=== PATIENT | female | born 1950 | race Asian ===

== ENCOUNTER → 2022-07-21 | Outpatient (CLI) | payer MEDICARE ==
[2022-07-21 10:01] LABS: Basophils # (auto) 0.1 10 ^3/uL (0-0.2); Basophils % (auto) 0.6 % (0.0-2.0); Eosinophils # (auto) 0 10 ^3/uL (0-0.8); Eosinophils % (auto) 0.3 % (0.0-7.0); Hematocrit 34.5 % (36.0-46.0); Hemoglobin 11.3 g/dL (12.2-16.2); Lymphocytes # (auto) 4.2 10 ^3/uL (0.4-5.4); Lymphocytes % (auto) 29.4 % (10.0-50.0); Mean Corpuscular Hemoglobin 29.4 pg (28.0-32.0); Mean Corpuscular Hgb Conc. 32.6 g/dL (32.0-36.0); Mean Corpuscular Volume 90.1 fL (80.0-100.0); Monocytes # (auto) 1.1 10 ^3/uL (0-1.3); Monocytes % (auto) 7.4 % (0.0-12.0); Neutrophils % (auto) 62.3 % (37.0-80.0); Nucleated Red Blood Cells % 0.1 %; Red Blood Cells 3.83 10^6/uL (4.0-5.20); Red Cell Distribution Width 13.7 % (11.8-14.3); White Blood Cell 14.4 10^3/uL (4.4-10.8)
[2022-07-21 10:54] LABS: Albumin 3.6 g/dL (3.4-5.0); Calcium 8.4 mg/dL (8.5-10.1); Potassium 3.3 mmol/L (3.5-5.1)
[2022-07-21 11:07] LABS: Bilirubin, Total 0.3 mg/dL (0.2-1.0); Total Protein 7.3 g/dL (6.4-8.2)
== END | disposition home or self-care (01) ==
LOC: LAB 09:40
PROVIDERS: ATTEND Student in an Organized Health Care Education/Training Program
DX: Z13.6 Encounter for screening for cardiovascular disorders (principal); R00.2 Palpitations
CPT/HCPCS: 36415; 80053; 80061; 85025

== ENCOUNTER → 2022-09-03 | Outpatient (CLI) | payer OTHER | END | disposition home or self-care (01) | LOC: LAB 10:35 | PROVIDERS: ATTEND Student in an Organized Health Care Education/Training Program | DX: Z12.11 Encounter for screening for malignant neoplasm of colon (principal); Z13.6 Encounter for screening for cardiovascular disorders; R00.2 Palpitations | CPT/HCPCS: 82274 ==

== ENCOUNTER → 2022-10-21 | Outpatient (CLI) | payer OTHER ==
[2022-10-21 12:32] LABS: Calcium 8.6 mg/dL (8.5-10.1); Magnesium 1.6 mg/dL (1.6-2.6); Potassium 3.7 mmol/L (3.5-5.1)
[2022-10-21 13:05] LABS: BUN/Creatinine Ratio 15.5 (10.0-20.0)
== END | disposition home or self-care (01) ==
LOC: LAB 11:41
DX: R00.2 Palpitations (principal)
CPT/HCPCS: 36415; 80048; 83735

== ENCOUNTER → 2022-11-23 | Outpatient (CLI) | payer OTHER | END | disposition home or self-care (01) | LOC: EDSTATUS 08:26 → XYW 08:28 | DX: I07.1 Rheumatic tricuspid insufficiency (principal); R07.9 Chest pain, unspecified | CPT/HCPCS: 93306 ==

== ENCOUNTER → 2022-12-08 | Outpatient (CLI) | payer OTHER ==
[2022-12-08 12:02] LABS: Basophils # (auto) 0.2 10 ^3/uL (0-0.2); Basophils % (auto) 1.3 % (0.0-2.0); Eosinophils # (auto) 0 10 ^3/uL (0-0.8); Eosinophils % (auto) 0.1 % (0.0-7.0); Hematocrit 35.4 % (36.0-46.0); Hemoglobin 11.4 g/dL (12.2-16.2); Lymphocytes # (auto) 2.2 10 ^3/uL (0.4-5.4); Mean Corpuscular Hemoglobin 29.5 pg (28.0-32.0); Mean Corpuscular Hgb Conc. 32.3 g/dL (32.0-36.0); Mean Corpuscular Volume 91.2 fL (80.0-100.0); Monocytes # (auto) 0.6 10 ^3/uL (0-1.3); Monocytes % (auto) 5.5 % (0.0-12.0); Neutrophils # (auto) 8.7 10 ^3/uL (1.6-8.6); Neutrophils % (auto) 74.1 % (37.0-80.0); Nucleated Red Blood Cells % 0.1 %; Red Blood Cells 3.88 10^6/uL (4.0-5.20); Red Cell Distribution Width 14.3 % (11.8-14.3); White Blood Cell 11.7 10^3/uL (4.4-10.8)
[2022-12-08 12:29] LABS: Urine Bacteria NONE SEEN /hpf (None Seen); Urine Blood Negative /uL (Negative); Urine Clarity Clear (Clear); Urine Hyaline Cast FEW /lpf (0 - 2); Urine Protein, UAD Negative (Negative); Urine Specific Gravity 1.008 (1.001-1.035); Urine Urobilinogen Normal (Negative); Urine WBC <1 /hpf (0 - 5)
[2022-12-08 12:30] LABS: Urine Color Straw (Yellow)
[2022-12-08 13:10] LABS: Erythrocyte Sedimentation Rate 12 mm/hr (0-20)
[2022-12-08 13:22] LABS: Alanine Aminotransferase 23 U/L (7-40); Albumin 4.7 g/dL (3.2-4.8); Alkaline Phosphatase 109 U/L (46-116); Anion Gap 10.9 (5-15); Aspartate Aminotransferase 14 U/L (13-40); BUN/Creatinine Ratio 20.2 (10.0-20.0); Blood Urea Nitrogen 42 mg/dL (9-23); CRP High Sensitivity 0.36 mg/dL (<1.0); Calcium 9.6 mg/dL (8.5-10.1); Carbon Dioxide 25.1 mmol/L (20-30); Chloride 100 mmol/L (98-107); Glucose 96 mg/dL (74-106); Potassium 4.8 mmol/L (3.5-5.1); Sodium 136 mmol/L (136-145)
[2022-12-08 13:23] LABS: Bilirubin, Total 0.6 mg/dL (0.2-1.0); Total Protein 6.9 g/dL (5.7-8.2)
[2022-12-08 13:34] LABS: Protein, Urine < 6.0 mg/dL (0.0-11.9)
[2022-12-08 13:37] LABS: Urine Protein/Creatinine Ratio 0.14
[2022-12-09 08:06] LABS: Complement C3 146 mg/dL (82-167)
[2022-12-09 10:08] LABS: Hepatitis B Core IgM Negative; Hepatitis C Antibody Negative (Negative)
[2022-12-09 14:06] LABS: Anti-Nuclear Antibody Direct Positive (Negative)
[2022-12-09 14:38] LABS: Hepatitis B Surface Antigen Negative (Negative)
[2022-12-09 23:07] LABS: CCP IgG/IgA Antibody 3 units (0-19)
[2022-12-10 12:07] LABS: QuantiFERON-TB Gold Plus Negative (Negative)
== END | disposition home or self-care (01) ==
LOC: LAB 10:49
PROVIDERS: ATTEND Internal Medicine Rheumatology
DX: M06.9 Rheumatoid arthritis, unspecified (principal); M32.9 Systemic lupus erythematosus, unspecified
CPT/HCPCS: 36415; 80053; 81001; 82570; 84156; 85025; 85652; 86038; 86141; 86160; 86200; 86705; 86706; 86803; 87340

== ENCOUNTER → 2023-01-24 | Outpatient (CLI) | payer MEDICARE, OTHER ==
[~2023-01-24] VITALS: Ht 157.5 cm; Wt 63.5 kg
[~2023-01-24] MED LIST: ADENOSINE 53 MG in GIVE UN-DILUTED 0 ML IV STA
== END | disposition home or self-care (01) ==
LOC: XY 09:45
PROVIDERS: ATTEND Student in an Organized Health Care Education/Training Program
DX: R07.9 Chest pain, unspecified (principal)
CPT/HCPCS: 78452; 93017; A9500; J0153

== ENCOUNTER → 2023-01-26 | Outpatient (CLI) | payer OTHER ==
[2023-01-26 11:55] LABS: Basophils # (auto) 0.1 10 ^3/uL (0-0.2); Basophils % (auto) 0.7 % (0.0-2.0); Eosinophils # (auto) 0.1 10 ^3/uL (0-0.8); Eosinophils % (auto) 0.9 % (0.0-7.0); Hematocrit 32.6 % (36.0-46.0); Hemoglobin 10.6 g/dL (12.2-16.2); Lymphocytes # (auto) 2.6 10 ^3/uL (0.4-5.4); Lymphocytes % (auto) 29.6 % (10.0-50.0); Mean Corpuscular Hemoglobin 29.2 pg (28.0-32.0); Mean Corpuscular Hgb Conc. 32.6 g/dL (32.0-36.0); Mean Corpuscular Volume 89.8 fL (80.0-100.0); Monocytes # (auto) 0.7 10 ^3/uL (0-1.3); Monocytes % (auto) 8.4 % (0.0-12.0); Neutrophils # (auto) 5.3 10 ^3/uL (1.6-8.6); Neutrophils % (auto) 60.4 % (37.0-80.0); Nucleated Red Blood Cells % 0.1 %; Red Blood Cells 3.64 10^6/uL (4.0-5.20); Red Cell Distribution Width 14.6 % (11.8-14.3); White Blood Cell 8.7 10^3/uL (4.4-10.8)
[2023-01-26 12:09] LABS: Urine Bacteria NONE SEEN /hpf (None Seen); Urine Blood Negative /uL (Negative); Urine Clarity Clear (Clear); Urine Color Colorless (Yellow); Urine Hyaline Cast FEW /lpf (0 - 2); Urine Protein, UAD Negative (Negative); Urine Specific Gravity 1.005 (1.001-1.035); Urine Urobilinogen Normal (Negative); Urine WBC <1 /hpf (0 - 5)
[2023-01-26 12:23] LABS: Alanine Aminotransferase 19 U/L (7-40); Albumin 4.5 g/dL (3.2-4.8); Alkaline Phosphatase 120 U/L (46-116); Anion Gap 6 (5-15); Aspartate Aminotransferase 21 U/L (13-40); BUN/Creatinine Ratio 8.3 (10.0-20.0); Blood Urea Nitrogen 10 mg/dL (9-23); Calcium 9.6 mg/dL (8.5-10.1); Carbon Dioxide 29 mmol/L (20-30); Chloride 105 mmol/L (98-107); Glucose 88 mg/dL (74-106); Potassium 4.2 mmol/L (3.5-5.1); Sodium 140 mmol/L (136-145)
[2023-01-26 12:24] LABS: Bilirubin, Total 0.4 mg/dL (0.2-1.0); Total Protein 6.9 g/dL (5.7-8.2)
[2023-01-26 12:26] LABS: Erythrocyte Sedimentation Rate 18 mm/hr (0-20)
[2023-01-27 10:47] LABS: Anti-dsDNA Antibody <1 IU/mL (0-9); Complement C3 147 mg/dL (82-167)
== END | disposition home or self-care (01) ==
LOC: LAB 11:32
PROVIDERS: ATTEND Internal Medicine Rheumatology
DX: M32.9 Systemic lupus erythematosus, unspecified (principal)
CPT/HCPCS: 36415; 80053; 81001; 85025; 85652; 86141; 86160; 86225; 87086

== ENCOUNTER → 2023-02-25 | Outpatient (CLI) | payer OTHER ==
[2023-02-25 11:14] LABS: Basophils # (auto) 0 10 ^3/uL (0-0.2); Basophils % (auto) 0.2 % (0.0-2.0); Eosinophils # (auto) 0 10 ^3/uL (0-0.8); Eosinophils % (auto) 0.1 % (0.0-7.0); Hematocrit 32.2 % (36.0-46.0); Hemoglobin 10.4 g/dL (12.2-16.2); Lymphocytes # (auto) 1.1 10 ^3/uL (0.4-5.4); Lymphocytes % (auto) 9.3 % (10.0-50.0); Mean Corpuscular Hemoglobin 29.3 pg (28.0-32.0); Mean Corpuscular Hgb Conc. 32.4 g/dL (32.0-36.0); Mean Corpuscular Volume 90.3 fL (80.0-100.0); Monocytes # (auto) 0.2 10 ^3/uL (0-1.3); Neutrophils # (auto) 10.5 10 ^3/uL (1.6-8.6); Neutrophils % (auto) 88.4 % (37.0-80.0); Nucleated Red Blood Cells % 0.1 %; Red Blood Cells 3.56 10^6/uL (4.0-5.20); Red Cell Distribution Width 15.4 % (11.8-14.3); White Blood Cell 11.8 10^3/uL (4.4-10.8)
[2023-02-25 11:43] LABS: Alanine Aminotransferase 20 U/L (7-40); Alkaline Phosphatase 116 U/L (46-116); Anion Gap 6 (5-15); BUN/Creatinine Ratio 22.7 (10.0-20.0); Blood Urea Nitrogen 27 mg/dL (9-23); CRP High Sensitivity 0.26 mg/dL (<1.0); Calcium 9.2 mg/dL (8.5-10.1); Carbon Dioxide 30 mmol/L (20-30); Chloride 103 mmol/L (98-107); Glucose 108 mg/dL (74-106); Potassium 3.9 mmol/L (3.5-5.1); Sodium 139 mmol/L (136-145)
[2023-02-25 11:44] LABS: Albumin 4.6 g/dL (3.2-4.8); Aspartate Aminotransferase 25 U/L (13-40); Bilirubin, Total 0.5 mg/dL (0.2-1.0); Total Protein 6.7 g/dL (5.7-8.2)
[2023-02-25 12:24] LABS: Erythrocyte Sedimentation Rate 3 mm/hr (0-20)
== END | disposition home or self-care (01) ==
LOC: LAB 10:53
PROVIDERS: ATTEND Internal Medicine Rheumatology
DX: M32.9 Systemic lupus erythematosus, unspecified (principal)
CPT/HCPCS: 36415; 80053; 85025; 85652; 86141

== ENCOUNTER 2023-04-07 11:07 | Day surgery (SDC) | payer OTHER ==
[2023-04-04 12:39] LABS: Basophils # (auto) 0 10 ^3/uL (0-0.2); Basophils % (auto) 0.4 % (0.0-2.0); Eosinophils # (auto) 0.1 10 ^3/uL (0-0.8); Eosinophils % (auto) 0.7 % (0.0-7.0); Hematocrit 32.4 % (36.0-46.0); Hemoglobin 10.8 g/dL (12.2-16.2); Lymphocytes # (auto) 3.1 10 ^3/uL (0.4-5.4); Lymphocytes % (auto) 29.7 % (10.0-50.0); Mean Corpuscular Hemoglobin 30.4 pg (28.0-32.0); Mean Corpuscular Hgb Conc. 33.4 g/dL (32.0-36.0); Mean Corpuscular Volume 91.3 fL (80.0-100.0); Monocytes # (auto) 0.6 10 ^3/uL (0-1.3); Monocytes % (auto) 5.5 % (0.0-12.0); Neutrophils # (auto) 6.7 10 ^3/uL (1.6-8.6); Neutrophils % (auto) 63.7 % (37.0-80.0); Nucleated Red Blood Cells % 0.1 %; Red Blood Cells 3.55 10^6/uL (4.0-5.20); Red Cell Distribution Width 14.4 % (11.8-14.3); White Blood Cell 10.5 10^3/uL (4.4-10.8)
[2023-04-04 13:41] LABS: INR 0.94 (0.9-1.15); Partial Thromboplastin Time 24.8 SEC (24.5-34.5); Prothrombin Time 9.9 sec (9.3-11.8)
[2023-04-04 13:52] LABS: Alanine Aminotransferase 29 U/L (7-40); Albumin 4.6 g/dL (3.2-4.8); Alkaline Phosphatase 134 U/L (46-116); Anion Gap 8 (5-15); Aspartate Aminotransferase 28 U/L (13-40); Blood Urea Nitrogen 23 mg/dL (9-23); Calcium 9.6 mg/dL (8.5-10.1); Carbon Dioxide 26 mmol/L (20-30); Chloride 107 mmol/L (98-107); Glucose 116 mg/dL (74-106); Potassium 3.4 mmol/L (3.5-5.1); Sodium 141 mmol/L (136-145)
[2023-04-04 13:53] LABS: Bilirubin, Total 0.4 mg/dL (0.2-1.0); Total Protein 6.7 g/dL (5.7-8.2)
[~2023-04-07] VITALS: Ht 157.5 cm; Wt 59.9 kg
[2023-04-07] VITALS (7 sets, daily range): BP systolic 106–134; BP diastolic 48–89; PULSE 82–90; RESP 15–20; TEMP 97.9; O2SAT 95–97
[~2023-04-07 11:07] MED LIST changes: -ADENOSINE 53 MG in GIVE UN-DILUTED 0 ML IV STA; +ALLO100T PO; +AMIT25TA20 PO; +ATOR20TA50 PO; +CELE100C82 PO; +CHOL100079 PO; +FOLI-119 PO; +FURO40TA4 PO; +HYDR-4188 PO; +LEFL20TA PO; +LISI20TA56 PO; +MAGN400T40 PO; +METO-158 PO; +OMEP20TA PO; +TRAM50TA2 PO
[2023-04-07] MEDS ORDERED: HEPARIN SODIUM (PORCINE) 5000 UNITS/ML 1ML VIAL ONE (13:52)
[2023-04-07] MEDS ORDERED: VERAPAMIL 2.5MG/ML INJ 2ML VIAL IV ONE (13:52)
[2023-04-07] MEDS ORDERED: ANGIOMAX 250 MG VIAL IV ONE (13:52)
[2023-04-07] MEDS ORDERED: SODIUM CHL 0.9% 0 ML ONE (13:53)
[2023-04-07] MEDS ORDERED: fentaNYL CITRATE 100 MCG/2 ML VL ONE (13:53)
[2023-04-07] MEDS ORDERED: MIDAZOLAM HCL 2MG/2ML 2ml VIAL (1mg/ml) ONE (13:53)
[2023-04-07] MEDS ORDERED: LIDOCAINE 2%HCL (LOCAL ANESTH.) INJ 20ML MDV ONE (13:53)
[2023-04-07] MEDS ORDERED: IODIXANOL 320MG/ML 100ML BTL IV ONE (14:15)
[2023-04-07] MEDS ORDERED: CHOL10009 PO (15:32)
[2023-04-07] MEDS ORDERED: OMEP-448 PO (15:37)
== END 2023-04-07 16:45 | disposition home or self-care (01) ==
LOC: CATH 11:07
PROVIDERS: ATTEND Student in an Organized Health Care Education/Training Program
DX: R94.39 Abnormal result of other cardiovascular function study (principal); R07.89 Other chest pain; R06.02 Shortness of breath; I20.0 Unstable angina; M32.9 Systemic lupus erythematosus, unspecified; M06.9 Rheumatoid arthritis, unspecified; N28.9 Disorder of kidney and ureter, unspecified
CPT/HCPCS: 36415; 80053; 85025; 85610; 85730; 93458; C1769; C1887; C1894; J1644; J2250; J3010; J7030; Q9967; 99152

== ENCOUNTER 2023-06-29 10:32 | Inpatient (IN) | payer MEDICARE, OTHER ==
[~2023-06-29] VITALS: Ht 157.5 cm; Wt 65.4 kg
[~2023-06-29 10:32] MED LIST changes: -CHOL100079 PO; +CHOL10009 PO; +OMEP-448 PO; -OMEP20TA PO
[2023-06-29 12:11] LABS: Hematocrit 29.5 % (36.0-46.0); Hemoglobin 9.7 g/dL (12.2-16.2); Mean Corpuscular Hemoglobin 28.7 pg (28.0-32.0); Mean Corpuscular Hgb Conc. 32.9 g/dL (32.0-36.0); Red Cell Distribution Width 14.2 % (11.8-14.3); White Blood Cell 10.3 10^3/uL (4.4-10.8)
[2023-06-29 12:12] LABS: Chloride 94 mmol/L (98-107); Potassium 3.2 mmol/L (3.5-5.1); Sodium 130 mmol/L (136-145)
[2023-06-29 12:13] LABS: Anion Gap 7 (5-15); Calcium 9.2 mg/dL (8.5-10.1); Carbon Dioxide 29 mmol/L (20-30)
[2023-06-29 12:16] LABS: Band Neutrophils % (manual) 0; Basophils % (manual) 0 (0.0-2.0); Blast Cells 0; Eosinophils % (manual) 0 (0-7); Metamyelocytes % 0; Myelocytes % 0; Promyelocytes % 0; Reactive Lymphocytes 0
[2023-06-29 12:18] LABS: BUN/Creatinine Ratio 8.1 (10.0-20.0); Blood Urea Nitrogen 14 mg/dL (9-23); Glucose 109 mg/dL (74-106)
[2023-06-29 12:30] LABS: INR 0.96 (0.9-1.15); Partial Thromboplastin Time 24.9 SEC (24.5-34.5); Prothrombin Time 10.1 sec (9.3-11.8)
[2023-06-29] MEDS: IOHEXOL 350 MG/ML 100ML IJ ONE (12:30)
[2023-06-29 12:48] LABS: Lymphocytes % (manual) 11 (10.0-50.0); Monocytes % (manual) 8 (0-12); Platelet Estimate Adequate
[2023-06-29] MEDS ORDERED: PRED10TA PO (14:04)
[2023-06-29] MEDS ORDERED: HYDR200T36 PO (14:04)
[2023-06-29] MEDS ORDERED: MET50T PO (14:04)
[2023-06-29] MEDS ORDERED: AMIT100T75 PO (14:04)
[2023-06-29] MEDS ORDERED: ACETAMINOPHEN 325 MG TAB PO PRN (14:15)
[2023-06-29] MEDS ORDERED: ONDANSETRON HCL 4 MG/2 ML VIAL IV PRN (14:15)
[2023-06-29] MEDS ORDERED: DOCUSATE SOD 100 MG CAP PO PRN (14:15)
[2023-06-29 14:33] VITALS: BP 129/69; PULSE 79; RESP 16; TEMP 98.3; O2SAT 97
[2023-06-29] MEDS: POTASSIUM EFFERVESENT TAB 25 MEQ PO ONE (14:51)
[2023-06-29] MEDS: SODIUM CHLORIDE 0.9% 1,000 ML IV ONE (14:51)
[2023-06-29 14:59] VITALS: RESP 15; O2SAT 97
[2023-06-29] MEDS: FUROSEMIDE 40 MG TAB PO SCH (18:29)
[2023-06-29] MEDS: IPRATROPIUM BROM 0.5 MG/2.5ML INH SOL NEB SCH (19:48)
[2023-06-29 19:49] VITALS: O2SAT 96
[2023-06-29] MEDS: ALBUTEROL SULF 2.5 MG/0.5ML(0.5%) NEB SOLN NEB SCH (19:49)
[2023-06-29 19:50] VITALS: PULSE 120; RESP 18; O2SAT 96
[2023-06-30] VITALS (14 sets, daily range): BP systolic 105–122; BP diastolic 57–76; PULSE 76–116; RESP 12–20; TEMP 97.8–98.2; O2SAT 95–100
[2023-06-30] MEDS: predniSONE 5 MG TAB PO SCH (04:08)
[2023-06-30] MEDS: ENOXAPARIN SOD 60 MG/0.6 ML SYRINGE SC SCH (04:08)
[2023-06-30] MEDS: HYDROcodone-ACET 5/325MG TAB PO PRN (04:09)
[2023-06-30] MEDS: METOPROLOL TARTRATE 50 MG TAB PO SCH (04:09)
[2023-06-30] MEDS: AMITRIPTYLINE HCL 25 MG TAB PO SCH (04:09)
[2023-06-30] MEDS: hydrOXYchloroQUINE SULFATE 200 MG TAB PO SCH (04:09)
[2023-06-30 05:28] LABS: Basophils # (auto) 0 10 ^3/uL (0-0.2); Basophils % (auto) 0.3 % (0.0-2.0); Eosinophils # (auto) 0 10 ^3/uL (0-0.8); Eosinophils % (auto) 0.2 % (0.0-7.0); Hemoglobin 8.6 g/dL (12.2-16.2); Mean Corpuscular Hemoglobin 28.5 pg (28.0-32.0); Mean Corpuscular Volume 86.6 fL (80.0-100.0); Monocytes # (auto) 0.4 10 ^3/uL (0-1.3); Monocytes % (auto) 5.6 % (0.0-12.0); Neutrophils # (auto) 5.2 10 ^3/uL (1.6-8.6); Neutrophils % (auto) 67.9 % (37.0-80.0); Red Blood Cells 3.01 10^6/uL (4.0-5.20); Red Cell Distribution Width 14.4 % (11.8-14.3); White Blood Cell 7.7 10^3/uL (4.4-10.8)
[2023-06-30 05:52] LABS: Alanine Aminotransferase 29 U/L (7-40); Albumin 3.8 g/dL (3.2-4.8); Alkaline Phosphatase 119 U/L (46-116); Anion Gap 9 (5-15); Aspartate Aminotransferase 39 U/L (13-40); BUN/Creatinine Ratio 9.5 (10.0-20.0); Bilirubin, Total 0.5 mg/dL (0.2-1.0); Blood Urea Nitrogen 11 mg/dL (9-23); Calcium 8.6 mg/dL (8.5-10.1); Carbon Dioxide 25 mmol/L (20-30); Chloride 97 mmol/L (98-107); Glucose 100 mg/dL (74-106); Potassium 3.3 mmol/L (3.5-5.1); Sodium 131 mmol/L (136-145); Total Protein 5.7 g/dL (5.7-8.2)
[2023-06-30] MEDS: PANTOPRAZOLE 40 MG TAB PO SCH (10:22)
[2023-06-30] MEDS: POTASSIUM EFFERVESENT TAB 25 MEQ PO ONE (21:04)
[2023-06-30 21:29] LABS: Alanine Aminotransferase 26 U/L (7-40); Albumin 3.9 g/dL (3.2-4.8); Alkaline Phosphatase 120 U/L (46-116); Anion Gap 7 (5-15); Aspartate Aminotransferase 35 U/L (13-40); BUN/Creatinine Ratio 10.1 (10.0-20.0); Bilirubin, Total 0.4 mg/dL (0.2-1.0); Blood Urea Nitrogen 14 mg/dL (9-23); Calcium 8.7 mg/dL (8.5-10.1); Carbon Dioxide 27 mmol/L (20-30); Chloride 100 mmol/L (98-107); Cholesterol 165 mg/dL (< 200); Glucose 155 mg/dL (74-106); HDL Cholesterol 58 mg/dL (40-59); LDL Cholesterol 83 mg/dL (< 100); Potassium 3.7 mmol/L (3.5-5.1); Sodium 134 mmol/L (136-145); Total Protein 5.8 g/dL (5.7-8.2); Triglycerides 139 mg/dL (< 150)
[2023-07-01] VITALS (12 sets, daily range): BP systolic 96–148; BP diastolic 31–96; PULSE 79–92; RESP 16–19; TEMP 36.7; O2SAT 95–100
[2023-07-01 06:40] LABS: Basophils # (auto) 0 10 ^3/uL (0-0.2); Basophils % (auto) 0.1 % (0.0-2.0); Eosinophils # (auto) 0 10 ^3/uL (0-0.8); Hemoglobin 9.6 g/dL (12.2-16.2); Lymphocytes # (auto) 0.8 10 ^3/uL (0.4-5.4); Lymphocytes % (auto) 11.1 % (10.0-50.0); Mean Corpuscular Hemoglobin 29.8 pg (28.0-32.0); Mean Corpuscular Hgb Conc. 34.3 g/dL (32.0-36.0); Mean Corpuscular Volume 87.1 fL (80.0-100.0); Monocytes # (auto) 0.3 10 ^3/uL (0-1.3); Neutrophils # (auto) 6.2 10 ^3/uL (1.6-8.6); Neutrophils % (auto) 84.8 % (37.0-80.0); Nucleated Red Blood Cells % 0.3 %; Red Blood Cells 3.22 10^6/uL (4.0-5.20); Red Cell Distribution Width 14.2 % (11.8-14.3); White Blood Cell 7.3 10^3/uL (4.4-10.8)
[2023-07-01 06:49] LABS: Anion Gap 6 (5-15); Carbon Dioxide 29 mmol/L (20-30); Chloride 100 mmol/L (98-107); Sodium 135 mmol/L (136-145)
[2023-07-01 06:55] LABS: BUN/Creatinine Ratio 11.7 (10.0-20.0); Blood Urea Nitrogen 16 mg/dL (9-23); Glucose 143 mg/dL (74-106)
== END 2023-07-01 18:09 | disposition home or self-care (01) | DRG 545 ==
LOC: ER 10:32 → OVERFLOW 14:10 → EAST 06-30 12:48
PROVIDERS: ADMIT Internal Medicine Pulmonary Disease; ATTEND Emergency Medicine
DX: M06.9 Rheumatoid arthritis, unspecified (principal); N17.0 Acute kidney failure with tubular necrosis; E87.1 Hypo-osmolality and hyponatremia; Z79.899 Other long term (current) drug therapy; I10 Essential (primary) hypertension; M32.9 Systemic lupus erythematosus, unspecified; R79.89 Other specified abnormal findings of blood chemistry; E87.5 Hyperkalemia; S09.90XA Unspecified injury of head, initial encounter; X58.XXXA Exposure to other specified factors, initial encounter; Y93.89 Activity, other specified; Y92.89 Other specified places as the place of occurrence of the external cause; Y99.8 Other external cause status
CPT/HCPCS: 36415; 70450; 71045; 72125; 78582; 80048; 80053; 80061; 82962; 83036; 84439; 84443; 85007; 85025; 85027; 85379; 85610; 85730; 93005; 94640; G0378

== ENCOUNTER → 2023-08-19 | Day surgery (SDC) | payer OTHER ==
[2023-08-16 09:24] LABS: Basophils # (auto) 0 10 ^3/uL (0-0.2); Basophils % (auto) 0.2 % (0.0-2.0); Eosinophils # (auto) 0 10 ^3/uL (0-0.8); Eosinophils % (auto) 0.1 % (0.0-7.0); Hematocrit 35.3 % (36.0-46.0); Hemoglobin 11.3 g/dL (12.2-16.2); Lymphocytes % (auto) 13.3 % (10.0-50.0); Mean Corpuscular Volume 90.4 fL (80.0-100.0); Monocytes # (auto) 0.9 10 ^3/uL (0-1.3); Neutrophils # (auto) 11.9 10 ^3/uL (1.6-8.6); Neutrophils % (auto) 80.4 % (37.0-80.0); Nucleated Red Blood Cells % 0.4 %; Red Blood Cells 3.91 10^6/uL (4.0-5.20); Red Cell Distribution Width 15.4 % (11.8-14.3); White Blood Cell 14.8 10^3/uL (4.4-10.8)
[2023-08-16 09:35] LABS: Urine Bacteria FEW /hpf (None Seen); Urine Blood Negative /uL (Negative); Urine Clarity Clear (Clear); Urine Color Light-Yellow (Yellow); Urine Hyaline Cast FEW /lpf (0 - 2); Urine Protein, UAD Negative (Negative); Urine Specific Gravity 1.011 (1.001-1.035); Urine Urobilinogen Normal (Negative); Urine WBC <1 /hpf (0 - 5)
[2023-08-16 09:39] LABS: INR 0.93 (0.9-1.15); Partial Thromboplastin Time < 20.0 SEC (24.5-34.5); Prothrombin Time 9.9 sec (9.3-11.8)
[2023-08-16 10:15] LABS: Alanine Aminotransferase 67 U/L (7-40); Albumin 4.6 g/dL (3.2-4.8); Alkaline Phosphatase 114 U/L (46-116); Anion Gap 9 (5-15); Aspartate Aminotransferase 39 U/L (13-40); BUN/Creatinine Ratio 29.9 (10.0-20.0); Blood Urea Nitrogen 44 mg/dL (9-23); Calcium 9.5 mg/dL (8.5-10.1); Carbon Dioxide 29 mmol/L (20-30); Chloride 98 mmol/L (98-107); Glucose 119 mg/dL (74-106); Potassium 3.8 mmol/L (3.5-5.1); Sodium 136 mmol/L (136-145)
[2023-08-16 10:16] LABS: Bilirubin, Total 0.6 mg/dL (0.2-1.0); Total Protein 6.9 g/dL (5.7-8.2)
[~2023-08-19] VITALS: Ht 157.5 cm; Wt 55.8 kg
[~2023-08-19] MED LIST changes: +AMIT100T75 PO; -AMIT25TA20 PO; +GLYCOPYRROLATE 0.2 MG/ML 1ML VIAL ONE; -HYDR-4188 PO; +HYDR200T36 PO; +HYDROCORTISONE SOD SUCC 100 MG/2ML INJ VIAL ONE; +HYDROmorphone HCL 2 MG/ML VL/or syr IV PRN; +MIDAZOLAM HCL 2MG/2ML 2ml VIAL (1mg/ml) ONE; +ONDANSETRON HCL 4 MG/2 ML VIAL IV ONE; +ONDANSETRON HCL 4 MG/2 ML VIAL ONE; +PRED10TA PO; +PROPOFOL 10 MG/ML 20 ML IV ONE
[2023-08-19 10:41] VITALS: PULSE 75; RESP 20; TEMP 97.2; O2SAT 96
[2023-08-19 11:05] VITALS: BP 122/67; PULSE 80; RESP 14; O2SAT 94
== END | disposition home or self-care (01) ==
LOC: GI 08:14
PROVIDERS: ATTEND Internal Medicine Gastroenterology
DX: R19.5 Other fecal abnormalities (principal); R10.9 Unspecified abdominal pain; D12.3 Benign neoplasm of transverse colon; I10 Essential (primary) hypertension; I42.9 Cardiomyopathy, unspecified; M19.90 Unspecified osteoarthritis, unspecified site; Z79.899 Other long term (current) drug therapy; Z90.49 Acquired absence of other specified parts of digestive tract; Z98.890 Other specified postprocedural states
CPT/HCPCS: 36415; 45380; 45385; 80053; 81001; 85025; 85610; 85730; 88305; J1720; J2250; J2405; J2704; J7030

== ENCOUNTER 2023-09-15 14:20 | Inpatient (IN) | payer OTHER ==
[~2023-09-15] VITALS: Ht 157.5 cm; Wt 63.6 kg
[2023-09-15] MEDS: InsuLIN REG 1unit/0.01ml Soln (100units/ml) SC SCH (06:03)
[2023-09-15] MEDS: ACCU-CHEK COMFORT CURVE STRIP VI SCH (06:06)
[~2023-09-15 14:20] MED LIST changes: -GLYCOPYRROLATE 0.2 MG/ML 1ML VIAL ONE; -HYDROCORTISONE SOD SUCC 100 MG/2ML INJ VIAL ONE; -HYDROmorphone HCL 2 MG/ML VL/or syr IV PRN; -MIDAZOLAM HCL 2MG/2ML 2ml VIAL (1mg/ml) ONE; -ONDANSETRON HCL 4 MG/2 ML VIAL IV ONE; -ONDANSETRON HCL 4 MG/2 ML VIAL ONE; -PROPOFOL 10 MG/ML 20 ML IV ONE
[2023-09-15 15:02] LABS: Hemoglobin 9.6 g/dL (12.2-16.2); Mean Corpuscular Hemoglobin 30.3 pg (28.0-32.0); Red Blood Cells 3.15 10^6/uL (4.0-5.20); Red Cell Distribution Width 15.2 % (11.8-14.3); White Blood Cell 14.3 10^3/uL (4.4-10.8)
[2023-09-15 15:18] LABS: Alanine Aminotransferase 60 U/L (7-40); Albumin 4.2 g/dL (3.2-4.8); Alkaline Phosphatase 120 U/L (46-116); Anion Gap 11 (5-15); Aspartate Aminotransferase 32 U/L (13-40); BUN/Creatinine Ratio 18.1 (10.0-20.0); Blood Urea Nitrogen 35 mg/dL (9-23); Carbon Dioxide 25 mmol/L (20-30); Chloride 99 mmol/L (98-107); Glucose 259 mg/dL (74-106); Lipase 37 U/L (12-53); Potassium 2.8 mmol/L (3.5-5.1); Sodium 135 mmol/L (136-145)
[2023-09-15 15:19] LABS: Bilirubin, Total 0.2 mg/dL (0.2-1.0); Total Protein 5.9 g/dL (5.7-8.2)
[2023-09-15 15:39] LABS: Lactic Acid w/Reflex 3.7 mmol/L (0.4-2.0)
[2023-09-15 15:43] LABS: Basophils % (manual) 0 (0.0-2.0); Blast Cells 0; Eosinophils % (manual) 0 (0-7); Metamyelocytes % 0; Myelocytes % 0; Promyelocytes % 0; Reactive Lymphocytes 0
[2023-09-15] MEDS: POTASSIUM CHL 20MEQ/100ML 100 ML IV SCH (16:45)
[2023-09-15] MEDS: SODIUM CHLORIDE 0.9% 1,000 ML IV ONE (16:45)
[2023-09-15] MEDS: POTASSIUM EFFERVESENT TAB 25 MEQ PO ONE (16:45)
[2023-09-15 17:00] LABS: Band Neutrophils % (manual) 3; Lymphocytes % (manual) 14 (10.0-50.0); Monocytes % (manual) 4 (0-12)
[2023-09-15] MEDS ORDERED: MORPHINE SULFATE INJ 2 MG/ml SYRG IV PRN (17:00)
[2023-09-15] MEDS ORDERED: NITROGLYCERIN 0.4 MG SL TAB SL PRN (17:00)
[2023-09-15] MEDS: cefTRIAXone 1GM/50ML D5W 50 ML IV ONE (17:00)
[2023-09-15] MEDS ORDERED: DEXTROSE (50%) 50ML SYRG IV PRN (17:00)
[2023-09-15 17:01] LABS: Platelet Estimate Adequate
[2023-09-15] MEDS: METOPROLOL TARTRATE 50 MG TAB PO SCH (22:00)
[2023-09-15] MEDS: AMITRIPTYLINE HCL 25 MG TAB PO SCH (22:00)
[2023-09-15] MEDS: ATORVASTATIN 20 MG TAB PO SCH (22:00)
[2023-09-16] VITALS (9 sets, daily range): BP systolic 95–146; BP diastolic 40–70; PULSE 74–116; RESP 16–20; TEMP 97.9–98.3; O2SAT 95–100
[2023-09-16] MEDS: cefTRIAXone 1GM/50ML D5W 50 ML IV ONE (01:29)
[2023-09-16] MEDS: SODIUM CHLORIDE 0.9% 1,000 ML IV SCH ×2 (01:30→12:19)
[2023-09-16] MEDS: POTASSIUM EFFERVESENT TAB 25 MEQ PO ONE (01:31)
[2023-09-16] MEDS: traMADol HCL 50 MG TAB PO PRN (01:31)
[2023-09-16] MEDS: POTASSIUM CHL 20MEQ/100ML 100 ML IV SCH (02:05)
[2023-09-16 06:56] LABS: Hematocrit 29.4 % (36.0-46.0); Hemoglobin 9.6 g/dL (12.2-16.2); Mean Corpuscular Hgb Conc. 32.8 g/dL (32.0-36.0); Mean Corpuscular Volume 94.5 fL (80.0-100.0); Red Blood Cells 3.11 10^6/uL (4.0-5.20); Red Cell Distribution Width 15.8 % (11.8-14.3); White Blood Cell 18.2 10^3/uL (4.4-10.8)
[2023-09-16 07:08] LABS: Alanine Aminotransferase 75 U/L (7-40); Alkaline Phosphatase 128 U/L (46-116); Anion Gap 9 (5-15); Aspartate Aminotransferase 56 U/L (13-40); BUN/Creatinine Ratio 23.6 (10.0-20.0); Carbon Dioxide 26 mmol/L (20-30); Chloride 101 mmol/L (98-107); Glucose 156 mg/dL (74-106); Magnesium 1.3 mg/dL (1.6-2.6); Potassium 4.1 mmol/L (3.5-5.1); Sodium 136 mmol/L (136-145)
[2023-09-16 07:09] LABS: Bilirubin, Total 0.2 mg/dL (0.2-1.0); Total Protein 5.6 g/dL (5.7-8.2)
[2023-09-16 07:11] LABS: Band Neutrophils % (manual) 0; Basophils % (manual) 0 (0.0-2.0); Blast Cells 0; Eosinophils % (manual) 0 (0-7); Promyelocytes % 0; Reactive Lymphocytes 0
[2023-09-16 07:13] LABS: Blood Urea Nitrogen 45 mg/dL (9-23)
[2023-09-16 08:23] LABS: Triglycerides 498 mg/dL (< 150)
[2023-09-16 08:24] LABS: CRP High Sensitivity 0.16 mg/dL (<1.0); Magnesium 1.4 mg/dL (1.6-2.6)
[2023-09-16 08:25] LABS: Cholesterol 280 mg/dL (< 200); Creatine Kinase IFCC 99 U/L (34-145); HDL Cholesterol 84 mg/dL (40-59)
[2023-09-16 08:32] LABS: Lymphocytes % (manual) 51 (10.0-50.0); Metamyelocytes % 2; Monocytes % (manual) 6 (0-12); Myelocytes % 1; Platelet Estimate Adequate
[2023-09-16] MEDS ORDERED: cefTRIAXone 1GM/50ML D5W 50 ML IV SCH (09:00)
[2023-09-16 09:19] LABS: INR 0.94 (0.9-1.15); Partial Thromboplastin Time < 20.0 SEC (24.5-34.5)
[2023-09-16 09:25] LABS: % Iron Saturation 28.8 % (15-50)
[2023-09-16 09:31] LABS: Urine Bacteria FEW /hpf (None Seen); Urine Blood TRACE /uL (Negative); Urine Clarity Turbid (Clear); Urine Color Light-Yellow (Yellow); Urine Hyaline Cast MOD /lpf (0 - 2); Urine Mucus FEW (None Seen); Urine Protein, UAD TRACE (Negative); Urine Specific Gravity 1.012 (1.001-1.035); Urine Urobilinogen Normal (Negative); Urine WBC 2 /hpf (0 - 5); Urine pH 5.5 (5.0-9.0)
[2023-09-16 09:34] LABS: Amphetamine Screen, Urine Neg (NEGATIVE); Barbiturate Scree,Urine Neg (NEGATIVE); Benzodiazephine Screen, Urine Neg (NEGATIVE); Cannabinoid Screen, Urine Pos (NEGATIVE); Cocaine Screen, Urine Neg (NEGATIVE); Opiate Scree,Urine Neg (NEGATIVE); Phencyclidine Screen, Urine Neg (NEGATIVE)
[2023-09-16] MEDS: MAGNESIUM OXIDE 400 MG TAB PO SCH (10:03)
[2023-09-16] MEDS: FOLIC ACID 1 MG TAB PO SCH (10:03)
[2023-09-16] MEDS: FUROSEMIDE 20 MG TAB PO SCH (10:04)
[2023-09-16] MEDS: CEFEPIME 1GM/ 50ML 50 ML IV SCH (10:04)
[2023-09-16] MEDS: MAGNESIUM SULFATE 1GM/100ML 100 ML IV SCH ×2 (10:04→13:15)
[2023-09-16] MEDS: ENOXAPARIN SOD 30 MG/0.3 ML SYRINGE SC SCH (10:04)
[2023-09-16 11:52] LABS: Erythrocyte Sedimentation Rate 19 mm/hr (0-20)
[2023-09-16 14:51] LABS: COVID19 ANTIGEN SOFIA FIA NEGATIVE (NEGATIVE); Rapid Influenza A Negative (Negative); Rapid Influenza B Negative (Negative)
[2023-09-16] MEDS: TEMAZEPAM 15 MG CAP PO PRN (21:55)
[2023-09-17] VITALS (10 sets, daily range): BP systolic 108–134; BP diastolic 62–89; PULSE 84–111; RESP 16–20; TEMP 97.7–98.6; O2SAT 95–99
[2023-09-17] MEDS ORDERED: cefTRIAXone 1GM/50ML D5W 50 ML IV SCH
[2023-09-17 06:47] LABS: Alanine Aminotransferase 61 U/L (7-40); Albumin 3.5 g/dL (3.2-4.8); Alkaline Phosphatase 109 U/L (46-116); Anion Gap 4 (5-15); Aspartate Aminotransferase 29 U/L (13-40); Bilirubin, Total 0.4 mg/dL (0.2-1.0); Blood Urea Nitrogen 19 mg/dL (9-23); Calcium 8.7 mg/dL (8.5-10.1); Carbon Dioxide 29 mmol/L (20-30); Chloride 105 mmol/L (98-107); Glucose 138 mg/dL (74-106); Magnesium 2.2 mg/dL (1.6-2.6); Potassium 3.4 mmol/L (3.5-5.1); Sodium 138 mmol/L (136-145); Total Protein 5.2 g/dL (5.7-8.2)
[2023-09-17 06:55] LABS: CRP High Sensitivity 2.03 mg/dL (<1.0)
[2023-09-17 07:39] LABS: Erythrocyte Sedimentation Rate 23 mm/hr (0-20)
[2023-09-17 07:46] LABS: Basophils # (auto) 0 10 ^3/uL (0-0.2); Basophils % (auto) 0.1 % (0.0-2.0); Eosinophils # (auto) 0 10 ^3/uL (0-0.8); Eosinophils % (auto) 0.1 % (0.0-7.0); Hematocrit 25.9 % (36.0-46.0); Hemoglobin 8.6 g/dL (12.2-16.2); Lymphocytes # (auto) 3.7 10 ^3/uL (0.4-5.4); Mean Corpuscular Hgb Conc. 33.4 g/dL (32.0-36.0); Monocytes # (auto) 0.6 10 ^3/uL (0-1.3); Monocytes % (auto) 5.9 % (0.0-12.0); Neutrophils # (auto) 6.2 10 ^3/uL (1.6-8.6); Neutrophils % (auto) 58.9 % (37.0-80.0); Nucleated Red Blood Cells % 0.2 %; Red Blood Cells 2.78 10^6/uL (4.0-5.20); Red Cell Distribution Width 15.5 % (11.8-14.3); White Blood Cell 10.6 10^3/uL (4.4-10.8)
[2023-09-17] MEDS: HYDROcodone-ACET 5/325MG TAB PO PRN (10:11)
[2023-09-17] MEDS: POTASSIUM CHLORIDE 40 MEQ, LIDOCAINE 1% (LOCAL ANESTH.) 4 ML in SODIUM CHL 0.9% 250 ML IV ONE (11:57)
[2023-09-17] MEDS: CEFEPIME 1GM/ 50ML 50 ML IV SCH (21:34)
[2023-09-18] VITALS (7 sets, daily range): BP systolic 111–128; BP diastolic 64–79; PULSE 80–123; RESP 17–19; TEMP 97.8–98.6; O2SAT 92–98
[2023-09-18 05:43] LABS: Basophils # (auto) 0 10 ^3/uL (0-0.2); Basophils % (auto) 0.1 % (0.0-2.0); Eosinophils # (auto) 0 10 ^3/uL (0-0.8); Eosinophils % (auto) 0.1 % (0.0-7.0); Hematocrit 25.3 % (36.0-46.0); Hemoglobin 8.6 g/dL (12.2-16.2); Lymphocytes # (auto) 3.1 10 ^3/uL (0.4-5.4); Lymphocytes % (auto) 34.7 % (10.0-50.0); Mean Corpuscular Hemoglobin 31.2 pg (28.0-32.0); Mean Corpuscular Hgb Conc. 33.8 g/dL (32.0-36.0); Mean Corpuscular Volume 92.4 fL (80.0-100.0); Monocytes # (auto) 0.6 10 ^3/uL (0-1.3); Monocytes % (auto) 6.1 % (0.0-12.0); Neutrophils # (auto) 5.4 10 ^3/uL (1.6-8.6); Nucleated Red Blood Cells % 0.3 %; Red Blood Cells 2.74 10^6/uL (4.0-5.20); Red Cell Distribution Width 15.3 % (11.8-14.3); White Blood Cell 9.1 10^3/uL (4.4-10.8)
[2023-09-18 05:47] LABS: Alanine Aminotransferase 43 U/L (7-40); Albumin 3.4 g/dL (3.2-4.8); Alkaline Phosphatase 98 U/L (46-116); Anion Gap 2 (5-15); Aspartate Aminotransferase 20 U/L (13-40); BUN/Creatinine Ratio 11.6 (10.0-20.0); Blood Urea Nitrogen 10 mg/dL (9-23); Carbon Dioxide 29 mmol/L (20-30); Chloride 108 mmol/L (98-107); Glucose 122 mg/dL (74-106); Magnesium 2.1 mg/dL (1.6-2.6); Potassium 4.3 mmol/L (3.5-5.1); Sodium 139 mmol/L (136-145)
[2023-09-18 05:48] LABS: Bilirubin, Total 0.3 mg/dL (0.2-1.0); Phosphorus 2.9 mg/dL (2.4-5.1); Total Protein 5.1 g/dL (5.7-8.2)
[2023-09-18 06:23] LABS: CRP High Sensitivity 3.78 mg/dL (<1.0)
[2023-09-18] MEDS: ENOXAPARIN SOD 40 MG/0.4 ML SYRINGE SC SCH (08:42)
[2023-09-18 16:06] LABS: Complement C3 144 mg/dL (82-167); Rheumatoid Arthritis Factor 12.2 IU/mL (<14.0)
[2023-09-19] VITALS (8 sets, daily range): BP systolic 96–148; BP diastolic 53–82; PULSE 80–119; RESP 14–18; TEMP 97.5–98.4; O2SAT 93–98
[2023-09-19 06:44] LABS: Basophils # (auto) 0 10 ^3/uL (0-0.2); Basophils % (auto) 0.3 % (0.0-2.0); Eosinophils # (auto) 0 10 ^3/uL (0-0.8); Eosinophils % (auto) 0.1 % (0.0-7.0); Hematocrit 27.1 % (36.0-46.0); Hemoglobin 8.9 g/dL (12.2-16.2); Lymphocytes # (auto) 2.8 10 ^3/uL (0.4-5.4); Lymphocytes % (auto) 35.3 % (10.0-50.0); Mean Corpuscular Hemoglobin 30.8 pg (28.0-32.0); Mean Corpuscular Hgb Conc. 32.9 g/dL (32.0-36.0); Mean Corpuscular Volume 93.8 fL (80.0-100.0); Monocytes # (auto) 0.5 10 ^3/uL (0-1.3); Monocytes % (auto) 6.4 % (0.0-12.0); Neutrophils # (auto) 4.7 10 ^3/uL (1.6-8.6); Neutrophils % (auto) 57.9 % (37.0-80.0); Nucleated Red Blood Cells % 0.2 %; Red Blood Cells 2.89 10^6/uL (4.0-5.20); Red Cell Distribution Width 15.7 % (11.8-14.3)
[2023-09-19 06:52] LABS: Alanine Aminotransferase 45 U/L (7-40); Alkaline Phosphatase 102 U/L (46-116); Anion Gap 4 (5-15); BUN/Creatinine Ratio 10.8 (10.0-20.0); Blood Urea Nitrogen 9 mg/dL (9-23); Calcium 9.2 mg/dL (8.5-10.1); Carbon Dioxide 28 mmol/L (20-30); Chloride 106 mmol/L (98-107); Glucose 130 mg/dL (74-106); Magnesium 1.9 mg/dL (1.6-2.6); Potassium 4.3 mmol/L (3.5-5.1); Sodium 138 mmol/L (136-145)
[2023-09-19 06:53] LABS: Albumin 3.6 g/dL (3.2-4.8); Aspartate Aminotransferase 23 U/L (13-40)
[2023-09-19 06:54] LABS: Bilirubin, Total 0.3 mg/dL (0.2-1.0); Total Protein 5.5 g/dL (5.7-8.2)
[2023-09-19] MEDS ORDERED: LIDOCAINE VISCOUS 2% 15ML UD PO ONE (08:30)
[2023-09-19] MEDS ORDERED: MIDAZOLAM HCL 2MG/2ML 2ml VIAL (1mg/ml) IV ONE (08:45)
[2023-09-19] MEDS ORDERED: fentaNYL CITRATE 100 MCG/2 ML VL IV ONE (08:45)
[2023-09-19 09:07] LABS: Anti-Centromere B Antibody <0.2 AI (0.0-0.9); Anti-Jo-1 Antibody <0.2 AI (0.0-0.9); Anti-dsDNA Antibody <1 IU/mL (0-9); Antichromatin Antibody <0.2 AI (0.0-0.9); Antiscleroderma-70 Antibody 1.6 AI (0.0-0.9); RNP Antibody <0.2 AI (0.0-0.9); Sjogren's Anti-SS-A Antibody <0.2 AI (0.0-0.9); Sjogren's Anti-SS-B Antibody <0.2 AI (0.0-0.9); Smith Antibody <0.2 AI (0.0-0.9)
[2023-09-19] MEDS ORDERED: LIDOCAINE 2%HCL (LOCAL ANESTH.) INJ 10ml MDV ONE (09:09)
[2023-09-19] MEDS: MIDAZOLAM HCL 2MG/2ML 2ml VIAL (1mg/ml) IM ONE (10:50)
[2023-09-19] MEDS: fentaNYL CITRATE 100 MCG/2 ML VL IV ONE (10:50)
[2023-09-19] MEDS: CEFPODOXIME PROXETIL 200 MG TAB PO SCH (21:43)
[2023-09-20 05:00] VITALS: BP 145/83; PULSE 94; RESP 20; TEMP 98; O2SAT 98
[2023-09-20 06:46] LABS: Basophils # (auto) 0 10 ^3/uL (0-0.2); Eosinophils # (auto) 0 10 ^3/uL (0-0.8); Neutrophils # (auto) 3.8 10 ^3/uL (1.6-8.6); White Blood Cell 7.6 10^3/uL (4.4-10.8)
[2023-09-20 06:48] LABS: Basophils % (auto) 0.3 % (0.0-2.0); Eosinophils % (auto) 0.3 % (0.0-7.0); Hematocrit 24.3 % (36.0-46.0); Hemoglobin 8.1 g/dL (12.2-16.2); Lymphocytes % (auto) 39.3 % (10.0-50.0); Mean Corpuscular Hemoglobin 31.2 pg (28.0-32.0); Mean Corpuscular Hgb Conc. 33.4 g/dL (32.0-36.0); Mean Corpuscular Volume 93.6 fL (80.0-100.0); Monocytes # (auto) 0.8 10 ^3/uL (0-1.3); Neutrophils % (auto) 50.1 % (37.0-80.0); Nucleated Red Blood Cells % 0.3 %; Red Cell Distribution Width 15.8 % (11.8-14.3)
[2023-09-20 07:02] LABS: Alanine Aminotransferase 36 U/L (7-40); Albumin 3.3 g/dL (3.2-4.8); Alkaline Phosphatase 96 U/L (46-116); Anion Gap 5 (5-15); Aspartate Aminotransferase 18 U/L (13-40); BUN/Creatinine Ratio 9.9 (10.0-20.0); Blood Urea Nitrogen 8 mg/dL (9-23); Calcium 8.9 mg/dL (8.5-10.1); Carbon Dioxide 27 mmol/L (20-30); Chloride 108 mmol/L (98-107); Glucose 125 mg/dL (74-106); Magnesium 1.8 mg/dL (1.6-2.6); Potassium 4.1 mmol/L (3.5-5.1); Sodium 140 mmol/L (136-145)
[2023-09-20 07:03] LABS: Bilirubin, Total 0.2 mg/dL (0.2-1.0)
[2023-09-20 07:11] LABS: CRP High Sensitivity 1.91 mg/dL (<1.0)
[2023-09-20 07:30] VITALS: PULSE 88; O2SAT 98
[2023-09-20 08:55] VITALS: BP 145/74; PULSE 67; RESP 18; TEMP 97.6; O2SAT 94
[2023-09-20 12:45] VITALS: BP 112/61; PULSE 74; RESP 17; TEMP 98.1; O2SAT 95
[2023-09-20] MEDS ORDERED: CEFP200T15 PO (13:09)
[2023-09-20 15:01] VITALS: BP 112/61; PULSE 74; RESP 18; TEMP 36.7; O2SAT 98
== END 2023-09-20 16:50 | disposition home or self-care (01) | DRG 871 ==
LOC: EDBD 14:20 → ER 14:20 → TELE-EAST 17:06 → TELE 17:06 → TELE-EAST 23:41
PROVIDERS: ADMIT Internal Medicine; ATTEND Internal Medicine
PROC: B24BZZ4 Ultrasonography of Heart with Aorta, Transesophageal (ICD-10-PCS; principal; 2023-09-19)
PROC: 079T3ZX Drainage of Bone Marrow, Percutaneous Approach, Diagnostic (ICD-10-PCS; 2023-09-19)
PROC: 07DR3ZX Extraction of Iliac Bone Marrow, Percutaneous Approach, Diagnostic (ICD-10-PCS; 2023-09-19)
DX: A40.9 Streptococcal sepsis, unspecified (principal); I21.A1 Myocardial infarction type 2; I13.0 Hypertensive heart and chronic kidney disease with heart failure and stage 1 through stage 4 chronic kidney disease, or unspecified chronic kidney disease; N17.9 Acute kidney failure, unspecified; I50.42 Chronic combined systolic (congestive) and diastolic (congestive) heart failure; D64.9 Anemia, unspecified; E11.22 Type 2 diabetes mellitus with diabetic chronic kidney disease; E87.6 Hypokalemia; G89.4 Chronic pain syndrome; N18.32 Chronic kidney disease, stage 3b; I25.10 Atherosclerotic heart disease of native coronary artery without angina pectoris; Z20.822 Contact with and (suspected) exposure to COVID-19; M06.9 Rheumatoid arthritis, unspecified; E83.42 Hypomagnesemia; J44.9 Chronic obstructive pulmonary disease, unspecified; K21.9 Gastro-esophageal reflux disease without esophagitis; M32.9 Systemic lupus erythematosus, unspecified; I34.0 Nonrheumatic mitral (valve) insufficiency; E78.2 Mixed hyperlipidemia; D72.820 Lymphocytosis (symptomatic)
CPT/HCPCS: 10005; 36415; 70450; 71045; 72192; 77012; 80053; 80061; 80307; 81001; 82550; 82728; 82962; 83516; 83540; 83550; 83605; 83615; 83690; 83735; 83880; 84100; 84443; 84484; 85007; 85025; 85027; 85045; 85610; 85652; 85730; 86141; 86160; 86225; 86235; 86431; 86850; 86900; 86901; 87040; 87077; 87081; 87086; 87186; 87426; 87804; 93005; 93306; 93312; 93886; 97110; 97116; 97163; 97530; 99152; G0378; J1815; J2001; J2250; J3480

== ENCOUNTER 2023-10-16 18:33 | Inpatient (IN) | payer OTHER ==
[~2023-10-16] VITALS: Ht 157.5 cm; Wt 60.2 kg
[2023-10-16] MEDS: SODIUM CHLORIDE 0.9% 1,000 ML IV SCH (02:10)
[~2023-10-16 18:33] MED LIST changes: -AMIT100T75 PO; +CEFP200T15 PO
[2023-10-16 19:27] LABS: Basophils # (auto) 0.1 10 ^3/uL (0-0.2); Basophils % (auto) 0.3 % (0.0-2.0); Eosinophils # (auto) 0 10 ^3/uL (0-0.8); Hematocrit 33.1 % (36.0-46.0); Hemoglobin 10.7 g/dL (12.2-16.2); Lymphocytes # (auto) 2.6 10 ^3/uL (0.4-5.4); Lymphocytes % (auto) 13.2 % (10.0-50.0); Mean Corpuscular Hemoglobin 30.3 pg (28.0-32.0); Mean Corpuscular Hgb Conc. 32.3 g/dL (32.0-36.0); Mean Corpuscular Volume 93.6 fL (80.0-100.0); Monocytes # (auto) 0.8 10 ^3/uL (0-1.3); Monocytes % (auto) 3.9 % (0.0-12.0); Neutrophils # (auto) 16.5 10 ^3/uL (1.6-8.6); Neutrophils % (auto) 82.6 % (37.0-80.0); Nucleated Red Blood Cells % 0.2 %; Red Blood Cells 3.54 10^6/uL (4.0-5.20); Red Cell Distribution Width 16.8 % (11.8-14.3)
[2023-10-16 19:30] VITALS: PULSE 120; RESP 24; O2SAT 97
[2023-10-16 19:40] LABS: Alanine Aminotransferase 64 U/L (7-40); Alkaline Phosphatase 127 U/L (46-116); Anion Gap 9 (5-15); Aspartate Aminotransferase 50 U/L (13-40); BUN/Creatinine Ratio 19.7 (10.0-20.0); Blood Urea Nitrogen 29 mg/dL (9-23); Calcium 9.3 mg/dL (8.7-10.4); Carbon Dioxide 23 mmol/L (20-30); Chloride 103 mmol/L (98-107); Glucose 313 mg/dL (74-106); Potassium 3.4 mmol/L (3.5-5.1); Sodium 135 mmol/L (136-145)
[2023-10-16 19:41] LABS: Bilirubin, Total 0.6 mg/dL (0.2-1.0)
[2023-10-16 19:50] LABS: Urine Bacteria FEW /hpf (None Seen); Urine Blood TRACE /uL (Negative); Urine Clarity Turbid (Clear); Urine Color Yellow (Yellow); Urine Hyaline Cast FEW /lpf (0 - 2); Urine Mucus FEW (None Seen); Urine Protein, UAD 1+ (Negative); Urine Specific Gravity 1.021 (1.001-1.035); Urine Urobilinogen Normal (Negative); Urine WBC 10 /hpf (0 - 5); Urine pH 5.5 (5.0-9.0)
[2023-10-16] MEDS: PIPERACILLIN-TAZOB 3.375GM 100 ML IV ONE (21:09)
[2023-10-16] MEDS: SODIUM CHLORIDE 0.9% 1,000 ML IV ONE (21:09)
[2023-10-16] MEDS ORDERED: VANCOMYCIN PER PHARMACY 0 MG IV SCH (21:30)
[2023-10-16] MEDS: POTASSIUM CHL 20 Meq TABLET PO ONE (21:30)
[2023-10-16] MEDS ORDERED: DOCUSATE SOD 100 MG CAP PO PRN (21:30)
[2023-10-16] MEDS ORDERED: hydrALAZINE HCL 20 MG/ML VL IV PRN (21:30)
[2023-10-16] MEDS ORDERED: IBUPROFEN 600 MG TAB PO PRN (21:30)
[2023-10-16] MEDS: CARVEDILOL 12.5 MG TAB PO SCH (22:00)
[2023-10-16] MEDS: MORPHINE SULFATE INJ 2 MG/ml SYRG IV PRN (22:49)
[2023-10-16] MEDS: ATORVASTATIN 20 MG TAB PO SCH (23:20)
[2023-10-16] MEDS: ASPirin 81 mg TAB PO ONE ×2 (23:21)
[2023-10-16] MEDS: VANCOMYCIN 1GM/200ML 200 ML IV ONE (23:38)
[2023-10-16] MEDS ORDERED: DEXTROSE (50%) 50ML SYRG IV PRN (23:45)
[2023-10-16] MEDS ORDERED: NITROGLYCERIN 0.4 MG SL TAB SL PRN (23:45)
[2023-10-16] MEDS ORDERED: MORPHINE SULFATE INJ 2 MG/ml SYRG IV PRN (23:45)
[2023-10-17] MEDS ORDERED: ACCU-CHEK COMFORT CURVE STRIP VI SCH
[2023-10-17] MEDS ORDERED: InsuLIN REG 1unit/0.01ml Soln (100units/ml) SC SCH
[2023-10-17] MEDS ORDERED: DEXTROSE (50%) 50ML SYRG IV PRN (02:00)
[2023-10-17] MEDS: InsuLIN REG 1unit/0.01ml Soln (100units/ml) SC SCH (04:09)
[2023-10-17] MEDS: ACCU-CHEK COMFORT CURVE STRIP VI SCH (04:09)
[2023-10-17 06:58] LABS: Alanine Aminotransferase 53 U/L (7-40); Albumin 3.3 g/dL (3.2-4.8); Alkaline Phosphatase 106 U/L (46-116); Anion Gap 6 (5-15); Aspartate Aminotransferase 34 U/L (13-40); BUN/Creatinine Ratio 16.1 (10.0-20.0); Bilirubin, Total 0.4 mg/dL (0.2-1.0); Blood Urea Nitrogen 18 mg/dL (9-23); Calcium 8.5 mg/dL (8.7-10.4); Carbon Dioxide 22 mmol/L (20-30); Chloride 109 mmol/L (98-107); Glucose 207 mg/dL (74-106); Potassium 3.4 mmol/L (3.5-5.1); Sodium 137 mmol/L (136-145); Total Protein 5.1 g/dL (5.7-8.2)
[2023-10-17 07:13] LABS: Basophils # (auto) 0 10 ^3/uL (0-0.2); Basophils % (auto) 0.1 % (0.0-2.0); Eosinophils # (auto) 0 10 ^3/uL (0-0.8); Eosinophils % (auto) 0.3 % (0.0-7.0); Hematocrit 30.7 % (36.0-46.0); Hemoglobin 9.7 g/dL (12.2-16.2); Lymphocytes # (auto) 2.7 10 ^3/uL (0.4-5.4); Mean Corpuscular Hemoglobin 31.2 pg (28.0-32.0); Mean Corpuscular Hgb Conc. 31.7 g/dL (32.0-36.0); Mean Corpuscular Volume 98.2 fL (80.0-100.0); Monocytes # (auto) 0.7 10 ^3/uL (0-1.3); Monocytes % (auto) 4.4 % (0.0-12.0); Neutrophils # (auto) 12.3 10 ^3/uL (1.6-8.6); Neutrophils % (auto) 78.2 % (37.0-80.0); Nucleated Red Blood Cells % 0.1 %; Red Blood Cells 3.13 10^6/uL (4.0-5.20); Red Cell Distribution Width 17.2 % (11.8-14.3); White Blood Cell 15.7 10^3/uL (4.4-10.8)
[2023-10-17 07:49] VITALS: PULSE 83; RESP 12; O2SAT 98
[2023-10-17] MEDS: cefTRIAXone 1GM/50ML D5W 50 ML IV SCH (08:40)
[2023-10-17] MEDS: FAMOTIDINE (10MG/ML) 2ML VL IV SCH (09:55)
[2023-10-17] MEDS: FUROSEMIDE 40 MG/4 ML VIAL IV SCH (09:55)
[2023-10-17] MEDS: ASPirin 81 mg TAB PO SCH (09:56)
[2023-10-17] MEDS: MULTIPLE VITAMIN TAB PO SCH (09:56)
[2023-10-17] MEDS: ONDANSETRON HCL 4 MG/2 ML VIAL IV PRN (10:08)
[2023-10-17 10:41] VITALS: RESP 16; O2SAT 98
[2023-10-17] MEDS: POTASSIUM CHL 20 Meq TABLET PO ONE (11:27)
[2023-10-17] MEDS: HYDROcodone-ACET 5/325MG TAB PO PRN (11:33)
[2023-10-17] MEDS: VANCOMYCIN 500 MG in D5W 5% 100 ML IV SCH (12:38)
[2023-10-17 14:54] LABS: Basophils # (auto) 0 10 ^3/uL (0-0.2); Basophils % (auto) 0.3 % (0.0-2.0); Eosinophils # (auto) 0 10 ^3/uL (0-0.8); Eosinophils % (auto) 0.2 % (0.0-7.0); Hematocrit 31.5 % (36.0-46.0); Hemoglobin 10.3 g/dL (12.2-16.2); Lymphocytes # (auto) 2.9 10 ^3/uL (0.4-5.4); Mean Corpuscular Hemoglobin 30.6 pg (28.0-32.0); Mean Corpuscular Hgb Conc. 32.6 g/dL (32.0-36.0); Mean Corpuscular Volume 93.7 fL (80.0-100.0); Monocytes # (auto) 0.3 10 ^3/uL (0-1.3); Neutrophils # (auto) 10.5 10 ^3/uL (1.6-8.6); Neutrophils % (auto) 76.5 % (37.0-80.0); Nucleated Red Blood Cells % 0.2 %; Red Blood Cells 3.36 10^6/uL (4.0-5.20); Red Cell Distribution Width 16.6 % (11.8-14.3); White Blood Cell 13.8 10^3/uL (4.4-10.8)
[2023-10-17 15:39] LABS: Erythrocyte Sedimentation Rate 30 mm/hr (0-20)
[2023-10-17 20:00] VITALS: PULSE 79; PULSE 92; RESP 17; O2SAT 99
[2023-10-17 21:00] VITALS: BP 102/69; PULSE 92; RESP 17; TEMP 98.2; O2SAT 99
[2023-10-17] MEDS ORDERED: CARVEDILOL 12.5 MG TAB PO SCH (22:00)
[2023-10-17] MEDS: methylPREDNISolone SOD SUCC 40 MG/ML VL IV SCH (22:19)
[2023-10-17] MEDS: METOPROLOL TARTRATE 25 MG TAB PO SCH (22:20)
[2023-10-18] VITALS (8 sets, daily range): BP systolic 110–152; BP diastolic 64–85; PULSE 83–104; RESP 16–20; TEMP 97.9–98.6; O2SAT 94–100
[2023-10-18] MEDS: VANCOMYCIN 1 GM/200 ML IV ONE (00:26)
[2023-10-18 07:13] LABS: Chloride 105 mmol/L (98-107); Potassium 3.8 mmol/L (3.5-5.1); Sodium 135 mmol/L (136-145)
[2023-10-18 07:14] LABS: Anion Gap 8 (5-15); Carbon Dioxide 22 mmol/L (20-30)
[2023-10-18 07:15] LABS: Calcium 8.6 mg/dL (8.5-10.1)
[2023-10-18 07:20] LABS: BUN/Creatinine Ratio 18.6 (10.0-20.0); Blood Urea Nitrogen 18 mg/dL (9-23); Glucose 131 mg/dL (74-106)
[2023-10-18 07:26] LABS: Basophils # (auto) 0 10 ^3/uL (0-0.2); Eosinophils # (auto) 0 10 ^3/uL (0-0.8); Hematocrit 31.6 % (36.0-46.0); Hemoglobin 9.9 g/dL (12.2-16.2); Lymphocytes # (auto) 0.6 10 ^3/uL (0.4-5.4); Lymphocytes % (auto) 4.6 % (10.0-50.0); Mean Corpuscular Hemoglobin 30.9 pg (28.0-32.0); Mean Corpuscular Hgb Conc. 31.4 g/dL (32.0-36.0); Mean Corpuscular Volume 98.4 fL (80.0-100.0); Monocytes # (auto) 0.2 10 ^3/uL (0-1.3); Monocytes % (auto) 1.7 % (0.0-12.0); Neutrophils # (auto) 11.5 10 ^3/uL (1.6-8.6); Neutrophils % (auto) 93.7 % (37.0-80.0); Nucleated Red Blood Cells % 0.1 %; Red Blood Cells 3.21 10^6/uL (4.0-5.20); Red Cell Distribution Width 16.9 % (11.8-14.3); White Blood Cell 12.3 10^3/uL (4.4-10.8)
[2023-10-18] MEDS ORDERED: PRED20TA2 PO (15:47)
[2023-10-18] MEDS ORDERED: AMIT25TA20 PO (15:48)
[2023-10-19] MEDS: VANCOMYCIN 750mg/150ml 150 ML IV SCH (00:02)
[2023-10-19 01:00] VITALS: BP 129/77; PULSE 99; RESP 18; TEMP 97.8; O2SAT 98
[2023-10-19 05:00] VITALS: BP 146/86; PULSE 92; RESP 18; TEMP 98; O2SAT 96
[2023-10-19 08:00] VITALS: PULSE 99
[2023-10-19] MEDS: FUROSEMIDE 20 MG TAB PO SCH (09:10)
[2023-10-19 10:00] VITALS: BP 154/87; PULSE 98; RESP 18; TEMP 97.5; O2SAT 97
[2023-10-19] MEDS ORDERED: DEXTROSE (50%) 50ML SYRG IV PRN (11:45)
[2023-10-19 13:00] VITALS: BP_SYST 122; BP_SYST 92; BP_DIAS 52; BP_DIAS 53; PULSE 18; PULSE 99; RESP 18; TEMP 98.2; O2SAT 92; O2SAT 94
[2023-10-19] MEDS ORDERED: HALOPERIDOL LACTATE 5 MG/ML INJ VIAL IM PRN (15:45)
[2023-10-19] MEDS: HALOPERIDOL LACTATE 5 MG/ML INJ VIAL IM PRN (15:52)
[2023-10-19] MEDS: HALOPERIDOL LACTATE 5 MG/ML INJ VIAL ONE (15:52)
[2023-10-19] MEDS: ACCU-CHEK COMFORT CURVE STRIP VI SCH (16:41)
[2023-10-19] MEDS: InsuLIN REG 1unit/0.01ml Soln (100units/ml) SC SCH ×2 (16:42→22:00)
[2023-10-19 20:00] VITALS: PULSE 103; RESP 20
[2023-10-20] VITALS (8 sets, daily range): BP systolic 123–157; BP diastolic 72–82; PULSE 80–129; RESP 17–20; TEMP 97.9–99.7; O2SAT 97–100
[2023-10-20] MEDS: methylPREDNISolone SOD SUCC 40 MG/ML VL IV SCH (11:23)
[2023-10-20 16:46] LABS: Hematocrit 29.7 % (36.0-46.0); Hemoglobin 9.8 g/dL (12.2-16.2); Mean Corpuscular Hemoglobin 31.1 pg (28.0-32.0); Mean Corpuscular Volume 94.2 fL (80.0-100.0); Red Blood Cells 3.15 10^6/uL (4.0-5.20); Red Cell Distribution Width 16.7 % (11.8-14.3); White Blood Cell 10.7 10^3/uL (4.4-10.8)
[2023-10-20 16:50] LABS: Basophils % (manual) 0 (0.0-2.0); Blast Cells 0; Eosinophils % (manual) 0 (0-7); Metamyelocytes % 0; Myelocytes % 0; Promyelocytes % 0; Reactive Lymphocytes 0
[2023-10-20 17:01] LABS: Alanine Aminotransferase 76 U/L (7-40); Albumin 3.8 g/dL (3.2-4.8); Alkaline Phosphatase 137 U/L (46-116); Anion Gap 9 (5-15); Aspartate Aminotransferase 42 U/L (13-40); Bilirubin, Total 0.4 mg/dL (0.2-1.0); Blood Urea Nitrogen 17 mg/dL (9-23); Calcium 8.9 mg/dL (8.5-10.1); Carbon Dioxide 23 mmol/L (20-30); Chloride 107 mmol/L (98-107); Glucose 249 mg/dL (74-106); Potassium 3.5 mmol/L (3.5-5.1); Sodium 139 mmol/L (136-145); Total Protein 5.6 g/dL (5.7-8.2)
[2023-10-20 17:42] LABS: Band Neutrophils % (manual) 2; Lymphocytes % (manual) 4 (10.0-50.0); Monocytes % (manual) 3 (0-12); Platelet Estimate Adequate
[2023-10-21] VITALS (7 sets, daily range): BP systolic 97–142; BP diastolic 65–84; PULSE 67–115; RESP 16–20; TEMP 97.6–98.3; O2SAT 91–98
[2023-10-21 06:37] LABS: Alanine Aminotransferase 64 U/L (7-40); Albumin 3.5 g/dL (3.2-4.8); Alkaline Phosphatase 118 U/L (46-116); Anion Gap 9 (5-15); Aspartate Aminotransferase 30 U/L (13-40); BUN/Creatinine Ratio 18.4 (10.0-20.0); Bilirubin, Total 0.4 mg/dL (0.2-1.0); Blood Urea Nitrogen 16 mg/dL (9-23); Calcium 8.8 mg/dL (8.7-10.4); Carbon Dioxide 22 mmol/L (20-30); Chloride 110 mmol/L (98-107); Glucose 137 mg/dL (74-106); Potassium 2.7 mmol/L (3.5-5.1); Sodium 141 mmol/L (136-145); Total Protein 5.2 g/dL (5.7-8.2)
[2023-10-21] MEDS: POTASSIUM CHLORIDE 60 MEQ, LIDOCAINE 1% (LOCAL ANESTH.) 6 ML in SODIUM CHL 0.9% 500 ML IV ONE (14:16)
[2023-10-22] VITALS (9 sets, daily range): BP systolic 107–140; BP diastolic 50–78; PULSE 73–110; RESP 16–20; TEMP 36.8; O2SAT 92–99
[2023-10-22] MEDS: VANCOMYCIN 750mg/150ml 150 ML IV SCH (05:57)
[2023-10-22 06:30] LABS: Anion Gap 7 (5-15); Calcium 8.9 mg/dL (8.7-10.4); Carbon Dioxide 21 mmol/L (20-30); Chloride 113 mmol/L (98-107); Potassium 3.4 mmol/L (3.5-5.1); Sodium 141 mmol/L (136-145)
[2023-10-22 06:35] LABS: Glucose 116 mg/dL (74-106)
[2023-10-22 06:36] LABS: BUN/Creatinine Ratio 20.8 (10.0-20.0); Blood Urea Nitrogen 20 mg/dL (9-23); Magnesium 1.5 mg/dL (1.6-2.6)
[2023-10-22 16:00] LABS: Erythrocyte Sedimentation Rate 21 mm/hr (0-20)
[2023-10-22] MEDS ORDERED: PRED10TA PO (16:42)
[2023-10-22] MEDS ORDERED: CEPH250C PO (16:42)
[2023-10-22] MEDS: OLANZapine 5 MG TAB PO PRN (20:09)
[2023-10-23 05:00] VITALS: BP 145/72; PULSE 80; RESP 18; TEMP 97.6; O2SAT 99
[2023-10-23 06:40] LABS: Alanine Aminotransferase 62 U/L (7-40); Albumin 3.5 g/dL (3.2-4.8); Alkaline Phosphatase 116 U/L (46-116); Anion Gap 10 (5-15); Aspartate Aminotransferase 30 U/L (13-40); BUN/Creatinine Ratio 19.3 (10.0-20.0); Blood Urea Nitrogen 16 mg/dL (9-23); Calcium 8.8 mg/dL (8.5-10.1); Carbon Dioxide 21 mmol/L (20-30); Chloride 112 mmol/L (98-107); Glucose 67 mg/dL (74-106); Potassium 3.5 mmol/L (3.5-5.1); Sodium 143 mmol/L (136-145)
[2023-10-23 06:41] LABS: Bilirubin, Total 0.3 mg/dL (0.2-1.0); Total Protein 4.7 g/dL (5.7-8.2)
[2023-10-23 06:49] LABS: Hematocrit 26.5 % (36.0-46.0); Hemoglobin 8.6 g/dL (12.2-16.2); Mean Corpuscular Hemoglobin 31.4 pg (28.0-32.0); Mean Corpuscular Hgb Conc. 32.4 g/dL (32.0-36.0); Mean Corpuscular Volume 96.8 fL (80.0-100.0); Red Blood Cells 2.74 10^6/uL (4.0-5.20); Red Cell Distribution Width 17.6 % (11.8-14.3); White Blood Cell 11.5 10^3/uL (4.4-10.8)
[2023-10-23 07:33] LABS: Basophils % (manual) 0 (0.0-2.0); Blast Cells 0; Eosinophils % (manual) 0 (0-7); Metamyelocytes % 0; Myelocytes % 0; Promyelocytes % 0; Reactive Lymphocytes 0
[2023-10-23 08:00] VITALS: PULSE 93
[2023-10-23 08:38] VITALS: BP 125/71; PULSE 79; RESP 18; TEMP 98.1; O2SAT 97
[2023-10-23 09:31] LABS: Band Neutrophils % (manual) 1; Lymphocytes % (manual) 17 (10.0-50.0); Monocytes % (manual) 10 (0-12); Platelet Estimate Adequate
[2023-10-23 12:48] VITALS: BP 121/76; PULSE 89; RESP 18; TEMP 98.4; O2SAT 98
[2023-10-25 07:06] LABS: Vitamin B1, Whole Blood 86.2 nmol/L (66.5-200.0)
[2023-10-27 12:06] LABS: Vitamin D 25-Hydroxy 42 ng/mL (.); Vitamin D-2 25-Hydroxy <1.0 ng/mL (.); Vitamin D-3 25-Hydroxy 41 ng/mL (.)
== END 2023-10-23 14:00 | disposition home health service (06) | DRG 871 ==
LOC: ER 18:33 → EDBD 18:33 → TELE 23:46 → TELE-CENTR 10-17 17:30 → TELE-WESTW 10-18 20:32
PROVIDERS: ADMIT Nurse Practitioner Family; ATTEND Nurse Practitioner Acute Care
DX: A41.9 Sepsis, unspecified organism (principal); G93.41 Metabolic encephalopathy; I21.A1 Myocardial infarction type 2; N17.9 Acute kidney failure, unspecified; M62.82 Rhabdomyolysis; N39.0 Urinary tract infection, site not specified; F05 Delirium due to known physiological condition; I10 Essential (primary) hypertension; E78.5 Hyperlipidemia, unspecified; E11.9 Type 2 diabetes mellitus without complications; E87.6 Hypokalemia; F41.9 Anxiety disorder, unspecified; E66.9 Obesity, unspecified; F17.200 Nicotine dependence, unspecified, uncomplicated; Z79.899 Other long term (current) drug therapy; Z90.710 Acquired absence of both cervix and uterus; Z83.3 Family history of diabetes mellitus; Z68.24 Body mass index [BMI] 24.0-24.9, adult
CPT/HCPCS: 36415; 70450; 71045; 71250; 72125; 74176; 80048; 80053; 80202; 80320; 81001; 82306; 82550; 82565; 82607; 82962; 83036; 83735; 83880; 84425; 84484; 85007; 85025; 85027; 85652; 86431; 86803; 87040; 87081; 87086; 93005; 96365; 96367; 97110; 97116; 97163; 97530; G0378; J1815; J2001; J2405; J2543; J3490; J7060

== ENCOUNTER 2023-10-30 08:04 | Inpatient (IN) | payer OTHER ==
[~2023-10-30] VITALS: Ht 154.9 cm; Wt 58.9 kg
[~2023-10-30 08:04] MED LIST changes: +AMIT25TA20 PO; -CEFP200T15 PO; +CEPH250C PO; +PRED20TA2 PO
[2023-10-30 09:19] LABS: Basophils # (auto) 0 10 ^3/uL (0-0.2); Basophils % (auto) 0.3 % (0.0-2.0); Eosinophils # (auto) 0 10 ^3/uL (0-0.8); Eosinophils % (auto) 0.1 % (0.0-7.0); Hematocrit 30.4 % (36.0-46.0); Hemoglobin 10.2 g/dL (12.2-16.2); Lymphocytes # (auto) 1.7 10 ^3/uL (0.4-5.4); Lymphocytes % (auto) 14.8 % (10.0-50.0); Mean Corpuscular Hemoglobin 31.3 pg (28.0-32.0); Mean Corpuscular Hgb Conc. 33.5 g/dL (32.0-36.0); Mean Corpuscular Volume 93.5 fL (80.0-100.0); Monocytes # (auto) 0.8 10 ^3/uL (0-1.3); Monocytes % (auto) 7.4 % (0.0-12.0); Neutrophils # (auto) 8.7 10 ^3/uL (1.6-8.6); Neutrophils % (auto) 77.4 % (37.0-80.0); Red Blood Cells 3.25 10^6/uL (4.0-5.20); Red Cell Distribution Width 16.7 % (11.8-14.3); White Blood Cell 11.3 10^3/uL (4.4-10.8)
[2023-10-30 09:34] LABS: Urine Bacteria FEW /hpf (None Seen); Urine Blood 1+ /uL (Negative); Urine Color Yellow (Yellow); Urine Hyaline Cast MANY /lpf (0 - 2); Urine Mucus FEW (None Seen); Urine Protein, UAD 1+ (Negative); Urine Specific Gravity 1.016 (1.001-1.035); Urine Urobilinogen 2 mg/dL (Negative); Urine WBC 1 /hpf (0 - 5); Urine pH 5.5 (5.0-9.0)
[2023-10-30 09:35] LABS: Urine Clarity Clear (Clear)
[2023-10-30 09:48] LABS: Chloride 101 mmol/L (98-107); Potassium 2.7 mmol/L (3.5-5.1); Sodium 135 mmol/L (136-145)
[2023-10-30 09:49] LABS: Anion Gap 13 (5-15); Calcium 8.6 mg/dL (8.7-10.4); Carbon Dioxide 21 mmol/L (20-30)
[2023-10-30 09:54] LABS: Glucose 192 mg/dL (74-106)
[2023-10-30] MEDS ORDERED: NITR-87 PO (09:57)
[2023-10-30] MEDS: SULFAMETHOX W/TRIMETH(800/160MG) DS TAB PO ONE (10:02)
[2023-10-30 10:10] LABS: BUN/Creatinine Ratio 13.7 (10.0-20.0); Blood Urea Nitrogen 21 mg/dL (9-23)
[2023-10-30] MEDS: POTASSIUM EFFERVESENT TAB 25 MEQ PO ONE ×2 (10:40→17:16)
[2023-10-30] MEDS ORDERED: ACETAMINOPHEN 325 MG TAB PO PRN (15:45)
[2023-10-30] MEDS ORDERED: DOCUSATE SOD 100 MG CAP PO PRN (15:45)
[2023-10-30] MEDS ORDERED: LACTATED RINGER'S 1,000 ML IV ONE (16:00)
[2023-10-30] MEDS ORDERED: POTASSIUM EFFERVESENT TAB 25 MEQ PO ONE (16:00)
[2023-10-30] MEDS: LACTATED RINGER'S 1,000 ML IV ONE (17:17)
[2023-10-30 18:19] LABS: Chloride 98 mmol/L (98-107); Potassium 4.1 mmol/L (3.5-5.1); Sodium 135 mmol/L (136-145)
[2023-10-30 18:20] LABS: Anion Gap 11 (5-15); Carbon Dioxide 26 mmol/L (20-30)
[2023-10-30] MEDS: ONDANSETRON HCL 4 MG/2 ML VIAL IV PRN (18:20)
[2023-10-30 18:21] LABS: Calcium 9.1 mg/dL (8.7-10.4)
[2023-10-30 18:25] LABS: Glucose 148 mg/dL (74-106)
[2023-10-30 18:26] LABS: BUN/Creatinine Ratio 15.9 (10.0-20.0); Blood Urea Nitrogen 24 mg/dL (9-23); Magnesium 1.5 mg/dL (1.6-2.6)
[2023-10-30 19:35] LABS: Creatinine, Urine 161.02 mg/dL (30.0-125.0)
[2023-10-30 19:48] VITALS: PULSE 116; O2SAT 97
[2023-10-30 19:51] VITALS: BP 95/68; PULSE 115; RESP 18; TEMP 98.9; O2SAT 97
[2023-10-30] MEDS: SODIUM CHLOR 0.9% PF (SALINE LOCK) 10ML VIAL/SYR IV SCH (21:39)
[2023-10-30 22:25] VITALS: BP 104/51; PULSE 113; RESP 16; TEMP 98.7; O2SAT 96
[2023-10-31] VITALS: BP 116/77; PULSE 114; RESP 16; TEMP 98.9; O2SAT 97
[2023-10-31 02:19] VITALS: BP 105/78; PULSE 103; RESP 13; TEMP 98.2; O2SAT 97
[2023-10-31 04:18] VITALS: BP 121/71; PULSE 106; RESP 13; TEMP 98.2; O2SAT 95
[2023-10-31 06:15] VITALS: BP 112/62; PULSE 109; RESP 19; TEMP 98.7; O2SAT 96
[2023-10-31] MEDS: MAGNESIUM SULFATE 1GM/100ML 100 ML IV ONE (09:45)
[2023-10-31 10:46] LABS: Basophils # (auto) 0 10 ^3/uL (0-0.2); Basophils % (auto) 0.3 % (0.0-2.0); Eosinophils # (auto) 0 10 ^3/uL (0-0.8); Eosinophils % (auto) 0.5 % (0.0-7.0); Hematocrit 27.2 % (36.0-46.0); Hemoglobin 9.2 g/dL (12.2-16.2); Lymphocytes # (auto) 1.1 10 ^3/uL (0.4-5.4); Lymphocytes % (auto) 16.1 % (10.0-50.0); Mean Corpuscular Hemoglobin 31.4 pg (28.0-32.0); Mean Corpuscular Hgb Conc. 33.8 g/dL (32.0-36.0); Mean Corpuscular Volume 92.9 fL (80.0-100.0); Monocytes # (auto) 0.5 10 ^3/uL (0-1.3); Monocytes % (auto) 7.1 % (0.0-12.0); Neutrophils # (auto) 5.3 10 ^3/uL (1.6-8.6); Red Blood Cells 2.93 10^6/uL (4.0-5.20); Red Cell Distribution Width 16.5 % (11.8-14.3); White Blood Cell 6.9 10^3/uL (4.4-10.8)
[2023-10-31 11:03] LABS: Alanine Aminotransferase 50 U/L (7-40); Alkaline Phosphatase 109 U/L (46-116); Anion Gap 6 (5-15); Aspartate Aminotransferase 34 U/L (13-40); Blood Urea Nitrogen 19 mg/dL (9-23); Calcium 8.5 mg/dL (8.7-10.4); Carbon Dioxide 28 mmol/L (20-30); Chloride 100 mmol/L (98-107); Glucose 193 mg/dL (74-106); Potassium 3.8 mmol/L (3.5-5.1); Sodium 134 mmol/L (136-145)
[2023-10-31 11:04] LABS: Albumin 3.4 g/dL (3.2-4.8); Bilirubin, Total 0.5 mg/dL (0.2-1.0); Total Protein 5.1 g/dL (5.7-8.2)
[2023-10-31 12:40] LABS: Amphetamine Screen, Urine Neg (NEGATIVE); Benzodiazephine Screen, Urine Neg (NEGATIVE)
[2023-10-31 12:41] LABS: Barbiturate Scree,Urine Neg (NEGATIVE); Cannabinoid Screen, Urine Pos (NEGATIVE); Cocaine Screen, Urine Neg (NEGATIVE); Opiate Scree,Urine Neg (NEGATIVE); Phencyclidine Screen, Urine Neg (NEGATIVE)
[2023-10-31] MEDS: cefTRIAXone 1GM/50ML D5W 50 ML IV SCH (14:06)
[2023-10-31] MEDS: SODIUM CHLORIDE 0.9% 1,000 ML IV SCH (16:21)
[2023-10-31 20:00] VITALS: BP 117/85; PULSE 108; PULSE 122; RESP 18; RESP 19; TEMP 98.4; O2SAT 97
[2023-10-31] MEDS: HYDROcodone-ACET 5/325MG TAB PO PRN (21:28)
[2023-11-01 00:48] VITALS: BP 108/75; PULSE 96; RESP 16; TEMP 98.3; O2SAT 97
[2023-11-01 04:00] VITALS: BP 111/76; PULSE 107; RESP 17; TEMP 98; O2SAT 97
[2023-11-01 05:12] LABS: Basophils # (auto) 0 10 ^3/uL (0-0.2); Basophils % (auto) 0.4 % (0.0-2.0); Eosinophils # (auto) 0 10 ^3/uL (0-0.8); Eosinophils % (auto) 0.5 % (0.0-7.0); Hematocrit 30.9 % (36.0-46.0); Hemoglobin 10.3 g/dL (12.2-16.2); Lymphocytes # (auto) 1.7 10 ^3/uL (0.4-5.4); Lymphocytes % (auto) 25.2 % (10.0-50.0); Mean Corpuscular Hemoglobin 31.1 pg (28.0-32.0); Mean Corpuscular Hgb Conc. 33.1 g/dL (32.0-36.0); Mean Corpuscular Volume 93.7 fL (80.0-100.0); Monocytes # (auto) 0.4 10 ^3/uL (0-1.3); Monocytes % (auto) 6.6 % (0.0-12.0); Neutrophils # (auto) 4.4 10 ^3/uL (1.6-8.6); Neutrophils % (auto) 67.3 % (37.0-80.0); Nucleated Red Blood Cells % 0.1 %; Red Cell Distribution Width 16.3 % (11.8-14.3); White Blood Cell 6.6 10^3/uL (4.4-10.8)
[2023-11-01 05:28] LABS: Alanine Aminotransferase 54 U/L (7-40); Albumin 3.8 g/dL (3.2-4.8); Alkaline Phosphatase 116 U/L (46-116); Anion Gap 9 (5-15); Aspartate Aminotransferase 31 U/L (13-40); BUN/Creatinine Ratio 10.9 (10.0-20.0); Blood Urea Nitrogen 15 mg/dL (9-23); Calcium 9.2 mg/dL (8.7-10.4); Carbon Dioxide 27 mmol/L (20-30); Chloride 99 mmol/L (98-107); Glucose 191 mg/dL (74-106); Potassium 3.6 mmol/L (3.5-5.1); Sodium 135 mmol/L (136-145)
[2023-11-01 05:29] LABS: Bilirubin, Total 0.5 mg/dL (0.2-1.0); Total Protein 5.9 g/dL (5.7-8.2)
[2023-11-01] MEDS: SODIUM CHLORIDE 0.9% 1,000 ML IV SCH (05:41)
[2023-11-01 05:52] LABS: Lactic Acid w/Reflex 2.3 mmol/L (0.4-2.0)
[2023-11-01 07:45] VITALS: PULSE 111; RESP 16; O2SAT 95
[2023-11-01] MEDS ORDERED: VANCOMYCIN PER PHARMACY 0 MG IV SCH (13:45)
[2023-11-01] MEDS: VANCOMYCIN 750mg/150ml 150 ML IV ONE (14:34)
[2023-11-01 20:00] VITALS: BP 116/68; PULSE 133; RESP 18; TEMP 98.9; O2SAT 100
[2023-11-02] VITALS: BP 120/70; PULSE 119; RESP 16; TEMP 98; O2SAT 100
[2023-11-02 04:29] VITALS: BP 113/63; PULSE 108; RESP 17; TEMP 98.4; O2SAT 99
[2023-11-02 04:54] LABS: Hematocrit 26.1 % (36.0-46.0); Hemoglobin 8.8 g/dL (12.2-16.2); Mean Corpuscular Hemoglobin 31.2 pg (28.0-32.0); Mean Corpuscular Hgb Conc. 33.6 g/dL (32.0-36.0); Red Blood Cells 2.81 10^6/uL (4.0-5.20); Red Cell Distribution Width 16.5 % (11.8-14.3); White Blood Cell 7.7 10^3/uL (4.4-10.8)
[2023-11-02 05:20] LABS: Band Neutrophils % (manual) 0; Basophils % (manual) 0 (0.0-2.0); Blast Cells 0; Metamyelocytes % 0; Myelocytes % 0; Promyelocytes % 0; Reactive Lymphocytes 0
[2023-11-02 07:39] LABS: Chloride 103 mmol/L (98-107); Potassium 3.5 mmol/L (3.5-5.1); Sodium 135 mmol/L (136-145)
[2023-11-02 07:40] VITALS: PULSE 105; RESP 17; O2SAT 96
[2023-11-02 07:40] LABS: Anion Gap 8 (5-15); Carbon Dioxide 24 mmol/L (20-30)
[2023-11-02 07:41] LABS: Calcium 8.3 mg/dL (8.7-10.4)
[2023-11-02 07:45] LABS: Glucose 111 mg/dL (74-106)
[2023-11-02 07:46] LABS: BUN/Creatinine Ratio 10.4 (10.0-20.0); Blood Urea Nitrogen 11 mg/dL (9-23); Magnesium 1.5 mg/dL (1.6-2.6)
[2023-11-02 08:26] LABS: Eosinophils % (manual) 1 (0-7); Lymphocytes % (manual) 18 (10.0-50.0); Monocytes % (manual) 3 (0-12)
[2023-11-02 08:27] LABS: Platelet Estimate Decreased
[2023-11-02] MEDS: MAGNESIUM SULFATE 1GM/100ML 100 ML IV ONE (09:34)
[2023-11-02] MEDS ORDERED: POTASSIUM EFFERVESENT TAB 25 MEQ GT ONE (10:00)
[2023-11-02] MEDS: POTASSIUM EFFERVESENT TAB 25 MEQ PO ONE (10:46)
[2023-11-02] MEDS: VANCOMYCIN 1GM/200ML 200 ML IV ONE (10:49)
[2023-11-02] MEDS ORDERED: SULF400T11 PO (16:42)
[2023-11-02] MEDS: FLUCONAZOLE 100 MG TAB PO ONE (17:39)
[2023-11-02] MEDS ORDERED: FLUC200T50 PO (20:13)
[2023-11-02] MEDS: FLUCONAZOLE 100 MG TAB PO SCH (21:42)
[2023-11-02] MEDS: hydrOXYchloroQUINE SULFATE 200 MG TAB PO SCH (22:18)
[2023-11-03 05:23] LABS: Alanine Aminotransferase 76 U/L (7-40); Albumin 3.2 g/dL (3.2-4.8); Alkaline Phosphatase 103 U/L (46-116); Anion Gap 6 (5-15); Aspartate Aminotransferase 79 U/L (13-40); BUN/Creatinine Ratio 8.5 (10.0-20.0); Blood Urea Nitrogen 7 mg/dL (9-23); Calcium 8.4 mg/dL (8.7-10.4); Carbon Dioxide 27 mmol/L (20-30); Chloride 103 mmol/L (98-107); Glucose 80 mg/dL (74-106); Magnesium 1.6 mg/dL (1.6-2.6); Potassium 3.9 mmol/L (3.5-5.1); Sodium 136 mmol/L (136-145)
[2023-11-03 05:24] LABS: Bilirubin, Total 0.4 mg/dL (0.2-1.0); Total Protein 4.8 g/dL (5.7-8.2)
[2023-11-03 05:27] LABS: Hematocrit 25.6 % (36.0-46.0); Hemoglobin 8.6 g/dL (12.2-16.2); Mean Corpuscular Hemoglobin 30.8 pg (28.0-32.0); Mean Corpuscular Hgb Conc. 33.4 g/dL (32.0-36.0); Mean Corpuscular Volume 92.3 fL (80.0-100.0); Red Blood Cells 2.78 10^6/uL (4.0-5.20); Red Cell Distribution Width 16.4 % (11.8-14.3); White Blood Cell 4.9 10^3/uL (4.4-10.8)
[2023-11-03 05:35] LABS: Band Neutrophils % (manual) 0; Basophils % (manual) 0 (0.0-2.0); Blast Cells 0; Eosinophils % (manual) 0 (0-7); Metamyelocytes % 0; Monocytes % (manual) 0 (0-12); Myelocytes % 0; Promyelocytes % 0; Reactive Lymphocytes 0
[2023-11-03 06:00] VITALS: PULSE 105; RESP 20; O2SAT 96
[2023-11-03 07:30] VITALS: PULSE 111; RESP 16; O2SAT 95
[2023-11-03 07:56] LABS: Lymphocytes % (manual) 29 (10.0-50.0); Platelet Estimate Decreased
[2023-11-03] MEDS: VANCOMYCIN 1GM/200ML 200 ML IV SCH (10:33)
[2023-11-03] MEDS: SERTRALINE HCL 50 MG TAB PO SCH (10:35)
[2023-11-03 18:40] VITALS: PULSE 98; RESP 16
[2023-11-03 20:00] VITALS: PULSE 112; RESP 16
[2023-11-03 22:00] VITALS: BP 131/66; PULSE 105; RESP 18; TEMP 98.3; O2SAT 97
[2023-11-04] VITALS (9 sets, daily range): BP systolic 120–144; BP diastolic 68–82; PULSE 94–114; RESP 16–19; TEMP 98–98.3; O2SAT 95–100
[2023-11-04 06:11] LABS: Basophils # (auto) 0 10 ^3/uL (0-0.2); Eosinophils # (auto) 0.1 10 ^3/uL (0-0.8); Lymphocytes # (auto) 1.6 10 ^3/uL (0.4-5.4); Neutrophils # (auto) 3.6 10 ^3/uL (1.6-8.6); Nucleated Red Blood Cells % 0.1 %
[2023-11-04 06:20] LABS: Chloride 106 mmol/L (98-107); Potassium 3.9 mmol/L (3.5-5.1); Sodium 137 mmol/L (136-145)
[2023-11-04 06:21] LABS: Anion Gap 7 (5-15); Basophils % (auto) 0.6 % (0.0-2.0); Calcium 8.2 mg/dL (8.7-10.4); Carbon Dioxide 24 mmol/L (20-30); Eosinophils % (auto) 1.1 % (0.0-7.0); Hematocrit 24.4 % (36.0-46.0); Mean Corpuscular Hemoglobin 31.3 pg (28.0-32.0); Mean Corpuscular Hgb Conc. 32.7 g/dL (32.0-36.0); Mean Corpuscular Volume 95.8 fL (80.0-100.0); Monocytes # (auto) 0.2 10 ^3/uL (0-1.3); Monocytes % (auto) 4.3 % (0.0-12.0); Red Blood Cells 2.54 10^6/uL (4.0-5.20); Red Cell Distribution Width 16.8 % (11.8-14.3); White Blood Cell 5.5 10^3/uL (4.4-10.8)
[2023-11-04 06:26] LABS: BUN/Creatinine Ratio 7.6 (10.0-20.0); Blood Urea Nitrogen 6 mg/dL (9-23); GFR African American 91 mL/min; GFR Non-African American 76 mL/min; Glucose 97 mg/dL (74-106)
[2023-11-04 06:27] LABS: Albumin 2.9 g/dL (3.2-4.8); Magnesium 1.5 mg/dL (1.6-2.6)
[2023-11-04 06:28] LABS: Phosphorus 3.5 mg/dL (2.4-5.1)
[2023-11-04] MEDS: MAGNESIUM SULFATE 1GM/100ML 100 ML IV ONE (15:52)
[2023-11-04] MEDS ORDERED: LORazepam 2MG/ML-1ML VIAL IV ONE (18:15)
[2023-11-04] MEDS ORDERED: HALOPERIDOL LACTATE 5 MG/ML INJ VIAL IM PRN (18:30)
[2023-11-04] MEDS: ATORVASTATIN 20 MG TAB PO SCH (18:43)
[2023-11-04] MEDS: METOPROLOL TARTRATE 25 MG TAB PO SCH (22:09)
[2023-11-05] VITALS (8 sets, daily range): BP systolic 105–128; BP diastolic 67–79; PULSE 81–98; RESP 17–18; TEMP 97.8–98.4; O2SAT 94–100
[2023-11-05] MEDS: ALLOPURINOL 100 MG TAB PO SCH (09:02)
[2023-11-05 09:48] LABS: Basophils # (auto) 0 10 ^3/uL (0-0.2); Eosinophils # (auto) 0 10 ^3/uL (0-0.8); Lymphocytes # (auto) 1.3 10 ^3/uL (0.4-5.4); Lymphocytes % (auto) 28.8 % (10.0-50.0); Monocytes # (auto) 0.2 10 ^3/uL (0-1.3); Nucleated Red Blood Cells % 0.2 %; Red Blood Cells 2.69 10^6/uL (4.0-5.20); White Blood Cell 4.6 10^3/uL (4.4-10.8)
[2023-11-05 09:50] LABS: Basophils % (auto) 0.3 % (0.0-2.0); Eosinophils % (auto) 0.8 % (0.0-7.0); Hematocrit 25.2 % (36.0-46.0); Hemoglobin 8.5 g/dL (12.2-16.2); Mean Corpuscular Hemoglobin 31.5 pg (28.0-32.0); Mean Corpuscular Hgb Conc. 33.6 g/dL (32.0-36.0); Mean Corpuscular Volume 93.7 fL (80.0-100.0); Monocytes % (auto) 4.2 % (0.0-12.0); Neutrophils % (auto) 65.9 % (37.0-80.0); Red Cell Distribution Width 16.8 % (11.8-14.3)
[2023-11-05 10:05] LABS: Chloride 109 mmol/L (98-107); Potassium 3.9 mmol/L (3.5-5.1); Sodium 140 mmol/L (136-145)
[2023-11-05 10:06] LABS: Anion Gap 6 (5-15); Calcium 8.5 mg/dL (8.7-10.4); Carbon Dioxide 25 mmol/L (20-30)
[2023-11-05 10:11] LABS: BUN/Creatinine Ratio 6.6 (10.0-20.0); Blood Urea Nitrogen 5 mg/dL (9-23); Glucose 135 mg/dL (74-106)
[2023-11-05 10:12] LABS: Magnesium 1.7 mg/dL (1.6-2.6)
[2023-11-05] MEDS ORDERED: SERT50TA PO (19:06)
[2023-11-06] VITALS (9 sets, daily range): BP systolic 114–145; BP diastolic 63–79; PULSE 84–104; RESP 16–20; TEMP 98–98.8; O2SAT 95–99
[2023-11-06 05:53] LABS: Basophils # (auto) 0 10 ^3/uL (0-0.2); Basophils % (auto) 0.3 % (0.0-2.0); Monocytes # (auto) 0.1 10 ^3/uL (0-1.3); Neutrophils # (auto) 2.5 10 ^3/uL (1.6-8.6); Nucleated Red Blood Cells % 0.2 %; Red Cell Distribution Width 16.6 % (11.8-14.3); White Blood Cell 4.3 10^3/uL (4.4-10.8)
[2023-11-06 05:56] LABS: Eosinophils # (auto) 0.1 10 ^3/uL (0-0.8); Eosinophils % (auto) 1.5 % (0.0-7.0); Hematocrit 25.3 % (36.0-46.0); Hemoglobin 8.3 g/dL (12.2-16.2); Lymphocytes # (auto) 1.5 10 ^3/uL (0.4-5.4); Mean Corpuscular Hemoglobin 30.8 pg (28.0-32.0); Mean Corpuscular Hgb Conc. 32.9 g/dL (32.0-36.0); Mean Corpuscular Volume 93.6 fL (80.0-100.0); Monocytes % (auto) 2.8 % (0.0-12.0); Neutrophils % (auto) 59.4 % (37.0-80.0)
[2023-11-06 06:10] LABS: Chloride 110 mmol/L (98-107); Potassium 3.8 mmol/L (3.5-5.1); Sodium 139 mmol/L (136-145)
[2023-11-06 06:11] LABS: Anion Gap 8 (5-15); Calcium 8.4 mg/dL (8.7-10.4); Carbon Dioxide 21 mmol/L (20-30)
[2023-11-06 06:16] LABS: BUN/Creatinine Ratio 8.7 (10.0-20.0); Blood Urea Nitrogen 6 mg/dL (9-23); Glucose 95 mg/dL (74-106)
[2023-11-06] MEDS: traMADol HCL 50 MG TAB PO PRN (16:36)
[2023-11-06] MEDS: CELECOXIB 100 MG CAP PO SCH (16:36)
[2023-11-07 05:00] VITALS: BP 117/80; PULSE 79; RESP 18; TEMP 98.1; O2SAT 99
[2023-11-07 05:55] LABS: Hemoglobin 8.2 g/dL (12.2-16.2); Mean Corpuscular Hgb Conc. 33.1 g/dL (32.0-36.0); Red Cell Distribution Width 16.5 % (11.8-14.3); White Blood Cell 5.2 10^3/uL (4.4-10.8)
[2023-11-07 05:56] LABS: Hematocrit 24.8 % (36.0-46.0); Mean Corpuscular Hemoglobin 30.9 pg (28.0-32.0); Mean Corpuscular Volume 93.3 fL (80.0-100.0); Red Blood Cells 2.66 10^6/uL (4.0-5.20)
[2023-11-07 05:59] LABS: Chloride 111 mmol/L (98-107); Potassium 4.2 mmol/L (3.5-5.1); Sodium 139 mmol/L (136-145)
[2023-11-07 06:00] LABS: Anion Gap 6 (5-15); Calcium 8.4 mg/dL (8.7-10.4); Carbon Dioxide 22 mmol/L (20-30)
[2023-11-07 06:01] LABS: Basophils % (manual) 0 (0.0-2.0); Blast Cells 0; Eosinophils % (manual) 0 (0-7); Myelocytes % 0; Promyelocytes % 0; Reactive Lymphocytes 0
[2023-11-07 06:05] LABS: BUN/Creatinine Ratio 7.5 (10.0-20.0); Blood Urea Nitrogen 6 mg/dL (9-23); Glucose 91 mg/dL (74-106)
[2023-11-07 08:00] VITALS: PULSE 83; RESP 18; O2SAT 98
[2023-11-07 09:00] VITALS: BP 123/72; PULSE 83; RESP 17; TEMP 98.7; O2SAT 100
[2023-11-07 10:06] LABS: Band Neutrophils % (manual) 4; Lymphocytes % (manual) 48 (10.0-50.0); Metamyelocytes % 1; Monocytes % (manual) 3 (0-12); Platelet Estimate Adequate
[2023-11-07 13:26] VITALS: BP 124/71; PULSE 75; RESP 18; TEMP 98.6; O2SAT 98
[2023-11-07 16:56] VITALS: BP 115/68; PULSE 78; RESP 17; TEMP 98.2; O2SAT 98
[2023-11-07 21:00] VITALS: BP 103/54; PULSE 86; RESP 17; TEMP 98; O2SAT 98
[2023-11-08] VITALS (7 sets, daily range): BP systolic 106–132; BP diastolic 58–76; PULSE 77–82; RESP 16–18; TEMP 98–98.6; O2SAT 94–99
[2023-11-08] MEDS ORDERED: METF-370 PO (15:59)
[2023-11-08] MEDS ORDERED: DEXTROSE (50%) 50ML SYRG IV PRN (16:00)
[2023-11-08] MEDS: InsuLIN REG 1unit/0.01ml Soln (100units/ml) SC SCH (17:00)
[2023-11-08] MEDS: ACCU-CHEK COMFORT CURVE STRIP VI SCH (17:00)
== END 2023-11-08 17:42 | disposition home health service (06) | DRG 871 ==
LOC: EDBD 08:04 → ER 08:04 → TELE 15:38 → ER 15:38 → TELE-WESTW 11-03 17:58 → WEST WING 11-08 01:29
PROVIDERS: ADMIT Internal Medicine; ATTEND Internal Medicine
DX: A41.9 Sepsis, unspecified organism (principal); I21.A1 Myocardial infarction type 2; N17.0 Acute kidney failure with tubular necrosis; R45.851 Suicidal ideations; E87.1 Hypo-osmolality and hyponatremia; N30.00 Acute cystitis without hematuria; E87.6 Hypokalemia; F32.A Depression, unspecified; I25.10 Atherosclerotic heart disease of native coronary artery without angina pectoris; E78.5 Hyperlipidemia, unspecified; I10 Essential (primary) hypertension; E83.42 Hypomagnesemia; J44.9 Chronic obstructive pulmonary disease, unspecified; M32.9 Systemic lupus erythematosus, unspecified; E11.9 Type 2 diabetes mellitus without complications; M06.9 Rheumatoid arthritis, unspecified
CPT/HCPCS: 36415; 71046; 72170; 76642; 76775; 80048; 80053; 80069; 80202; 80307; 81001; 82570; 82962; 83605; 83735; 84300; 84484; 85007; 85025; 85027; 87081; 87086; 93005; 96365; 96375; 96376; 97110; 97116; 97163; 97530; G0378; J2405

== ENCOUNTER 2023-11-22 21:54 | Inpatient (IN) | payer OTHER ==
[~2023-11-22] VITALS: Ht 157.5 cm; Wt 45.1 kg
[2023-11-22] MEDS: SODIUM CHLORIDE 0.9% 1,500 ML IV ONE
[~2023-11-22 21:54] MED LIST changes: -CELE100C82 PO; -CEPH250C PO; -LEFL20TA PO; +METF-370 PO; -PRED10TA PO; -PRED20TA2 PO; +SERT50TA PO
[2023-11-22 22:40] LABS: Hemoglobin 11.8 g/dL (12.2-16.2)
[2023-11-22 22:41] LABS: Hematocrit 38.4 % (36.0-46.0); Mean Corpuscular Hemoglobin 29.8 pg (28.0-32.0); Mean Corpuscular Hgb Conc. 30.7 g/dL (32.0-36.0); Mean Corpuscular Volume 97.1 fL (80.0-100.0); Platelet Count (auto) 258 10^3/uL (140-450); Red Blood Cells 3.95 10^6/uL (4.0-5.20); Red Cell Distribution Width 16.7 % (11.8-14.3); White Blood Cell 27.4 10^3/uL (4.4-10.8)
[2023-11-22 22:50] LABS: Alanine Aminotransferase 101 U/L (7-40); Albumin 4.2 g/dL (3.2-4.8); Alkaline Phosphatase 198 U/L (46-116); Anion Gap 27 (5-15); Aspartate Aminotransferase 106 U/L (13-40); BUN/Creatinine Ratio 13.6 (10.0-20.0); Bilirubin, Total 0.7 mg/dL (0.2-1.0); Calcium 9.5 mg/dL (8.7-10.4); Carbon Dioxide 18 mmol/L (20-30); Chloride 112 mmol/L (98-107); Creatine Kinase IFCC 210 U/L (34-145); Glucose 344 mg/dL (74-106); Potassium 3.4 mmol/L (3.5-5.1); Sodium 157 mmol/L (136-145); Total Protein 6.5 g/dL (5.7-8.2)
[2023-11-22 23:01] LABS: Band Neutrophils % (manual) 0; Basophils % (manual) 0 (0.0-2.0); Blast Cells 0; Eosinophils % (manual) 0 (0-7); Metamyelocytes % 0; Myelocytes % 0; Promyelocytes % 0; Reactive Lymphocytes 0
[2023-11-22 23:02] LABS: Anisocytosis Slight; Lymphocytes % (manual) 6 (10.0-50.0); Monocytes % (manual) 8 (0-12); Platelet Estimate Adequate
[2023-11-22 23:04] LABS: Blood Urea Nitrogen 91 mg/dL (9-23)
[2023-11-22 23:56] LABS: Lactic Acid w/Reflex 4.8 mmol/L (0.4-2.0)
[2023-11-23] MEDS ORDERED: MORPHINE SULFATE INJ 2 MG/ml SYRG IV PRN
[2023-11-23] MEDS ORDERED: NITROGLYCERIN 0.4 MG SL TAB SL PRN
[2023-11-23 00:55] LABS: Base Excess -8.9 mmol/L (-2.0-2.0)
[2023-11-23] MEDS ORDERED: VANCOMYCIN PER PHARMACY 0 MG IV SCH (01:15)
[2023-11-23 01:49] LABS: Potassium 3.6 mmol/L (3.5-5.1)
[2023-11-23 01:50] LABS: Anion Gap 20 (5-15); Calcium 7.3 mg/dL (8.7-10.4); Carbon Dioxide 18 mmol/L (20-30)
[2023-11-23 01:55] LABS: BUN/Creatinine Ratio 13.7 (10.0-20.0); Chloride 124 mmol/L (98-107); Glucose 248 mg/dL (74-106)
[2023-11-23 01:58] LABS: Sodium 162 mmol/L (136-145)
[2023-11-23 01:59] LABS: Blood Urea Nitrogen 81 mg/dL (9-23)
[2023-11-23] MEDS: INSULIN DRIP 100 UNIT/100ML 100 ML IV SCH ×5 (02:01→18:30)
[2023-11-23] MEDS: ACCU-CHEK COMFORT CURVE STRIP VI SCH ×3 (02:08→07:26)
[2023-11-23] MEDS: VANCOMYCIN 1GM/200ML 200 ML IV ONE (03:03)
[2023-11-23] MEDS: SOD CHL 0.45% 1,000 ML IV SCH (04:58)
[2023-11-23] MEDS: CEFEPIME 2GM/50ML NS 50 ML IV ONE (05:05)
[2023-11-23] MEDS ORDERED: DEXTROSE (50%) 50ML SYRG IV PRN (06:30)
[2023-11-23] MEDS ORDERED: SODIUM CHLORIDE 0.9% 1,000 ML IV SCH (07:15)
[2023-11-23 07:30] VITALS: PULSE 119; RESP 21; O2SAT 96
[2023-11-23] MEDS: NOREPINEPHRINE 8 MG/250ML KIT 250 ML IV SCH (08:03)
[2023-11-23 08:04] LABS: Chloride 119 mmol/L (98-107); Potassium 3.3 mmol/L (3.5-5.1)
[2023-11-23 08:05] LABS: Anion Gap 19 (5-15); Carbon Dioxide 17 mmol/L (20-30)
[2023-11-23 08:11] LABS: BUN/Creatinine Ratio 15.2 (10.0-20.0); Glucose 209 mg/dL (74-106)
[2023-11-23 08:24] LABS: Sodium 155 mmol/L (136-145)
[2023-11-23 08:25] LABS: Blood Urea Nitrogen 88 mg/dL (9-23)
[2023-11-23] MEDS: PIPERACILLIN-TAZOB 3.375GM 100 ML IV SCH (10:08)
[2023-11-23 10:38] LABS: Urine Bacteria FEW /hpf (None Seen); Urine Blood 2+ /uL (Negative); Urine Clarity Turbid (Clear); Urine Color Yellow (Yellow); Urine Hyaline Cast MANY /lpf (0 - 2); Urine Mucus FEW (None Seen); Urine Protein, UAD 1+ (Negative); Urine Specific Gravity 1.019 (1.001-1.035); Urine Urobilinogen Normal (Negative); Urine WBC 18 /hpf (0 - 5); Urine pH 5.5 (5.0-9.0)
[2023-11-23] MEDS: D5W/SOD CHL 0.45% 1,000 ML IV SCH (12:17)
[2023-11-23] MEDS: DEXTROSE (50%) 50ML SYRG IV PRN (12:46)
[2023-11-23 12:47] LABS: Base Excess -7.3 mmol/L (-2.0-2.0)
[2023-11-23 14:29] LABS: Anion Gap 18 (5-15); Carbon Dioxide 18 mmol/L (20-30); Chloride 116 mmol/L (98-107); Potassium 3.2 mmol/L (3.5-5.1); Sodium 152 mmol/L (136-145)
[2023-11-23 14:30] LABS: Calcium 7.8 mg/dL (8.7-10.4)
[2023-11-23 14:35] LABS: BUN/Creatinine Ratio 14.9 (10.0-20.0); Glucose 274 mg/dL (74-106)
[2023-11-23 14:44] LABS: Blood Urea Nitrogen 84 mg/dL (9-23)
[2023-11-23] MEDS: DEXTROSE 10% 1,000 ML IV SCH (19:05)
[2023-11-23 19:30] VITALS: PULSE 113; RESP 20; O2SAT 100
[2023-11-23 20:01] LABS: Chloride 116 mmol/L (98-107); Sodium 151 mmol/L (136-145)
[2023-11-23 20:02] LABS: Calcium 7.9 mg/dL (8.7-10.4)
[2023-11-23 20:07] LABS: BUN/Creatinine Ratio 15.1 (10.0-20.0); Blood Urea Nitrogen 78 mg/dL (9-23); Glucose 216 mg/dL (74-106)
[2023-11-23 20:51] LABS: Anion Gap 20 (5-15); Carbon Dioxide 15 mmol/L (20-30)
[2023-11-24 02:50] LABS: Basophils # (auto) 0 10 ^3/uL (0-0.2); Basophils % (auto) 0.2 % (0.0-2.0); Eosinophils # (auto) 0.1 10 ^3/uL (0-0.8); Eosinophils % (auto) 0.2 % (0.0-7.0); Hematocrit 28.5 % (36.0-46.0); Hemoglobin 9.1 g/dL (12.2-16.2); Lymphocytes # (auto) 1.8 10 ^3/uL (0.4-5.4); Lymphocytes % (auto) 7.7 % (10.0-50.0); Mean Corpuscular Hemoglobin 30.7 pg (28.0-32.0); Mean Corpuscular Hgb Conc. 31.9 g/dL (32.0-36.0); Mean Corpuscular Volume 96.3 fL (80.0-100.0); Monocytes # (auto) 0.3 10 ^3/uL (0-1.3); Monocytes % (auto) 1.2 % (0.0-12.0); Neutrophils # (auto) 21.3 10 ^3/uL (1.6-8.6); Neutrophils % (auto) 90.7 % (37.0-80.0); Nucleated Red Blood Cells % 0.4 %; Platelet Count (auto) 125 10^3/uL (140-450); Red Blood Cells 2.96 10^6/uL (4.0-5.20); Red Cell Distribution Width 16.5 % (11.8-14.3); White Blood Cell 23.5 10^3/uL (4.4-10.8)
[2023-11-24 03:21] LABS: Alanine Aminotransferase 92 U/L (7-40); Albumin 3.1 g/dL (3.2-4.8); Alkaline Phosphatase 138 U/L (46-116); Anion Gap 17 (5-15); Aspartate Aminotransferase 84 U/L (13-40); BUN/Creatinine Ratio 17.2 (10.0-20.0); Calcium 7.9 mg/dL (8.7-10.4); Carbon Dioxide 18 mmol/L (20-30); Chloride 116 mmol/L (98-107); Glucose 101 mg/dL (74-106); Potassium 2.8 mmol/L (3.5-5.1); Sodium 151 mmol/L (136-145)
[2023-11-24 03:22] LABS: Bilirubin, Total 0.4 mg/dL (0.2-1.0); Total Protein 5.1 g/dL (5.7-8.2)
[2023-11-24 03:30] LABS: Blood Urea Nitrogen 80 mg/dL (9-23)
[2023-11-24] MEDS ORDERED: POTASSIUM EFFERVESENT TAB 25 MEQ PO ONE (04:00)
[2023-11-24] MEDS: CALCIUM GLUC 1,000mg/50ml-NS 50 ML IV ONE (04:26)
[2023-11-24 04:42] LABS: Platelet Estimate Decreased
[2023-11-24] MEDS: D5W/SOD CHL 0.45% 1,000 ML IV SCH ×2 (05:35→16:47)
[2023-11-24] MEDS: POTASSIUM CHL 20 Meq TABLET PO ONE ×2 (05:41→11:21)
[2023-11-24] MEDS: ALBUMIN 25% 50 ML IV ONE (05:45)
[2023-11-24] MEDS: FUROSEMIDE 40 MG/4 ML VIAL IV ONE (06:15)
[2023-11-24 07:30] VITALS: PULSE 19; RESP 19; O2SAT 98
[2023-11-24 08:25] LABS: Basophils # (auto) 0 10 ^3/uL (0-0.2); Basophils % (auto) 0.1 % (0.0-2.0); Eosinophils # (auto) 0.1 10 ^3/uL (0-0.8); Eosinophils % (auto) 0.3 % (0.0-7.0); Hematocrit 28.7 % (36.0-46.0); Lymphocytes # (auto) 1.4 10 ^3/uL (0.4-5.4); Lymphocytes % (auto) 6.1 % (10.0-50.0); Mean Corpuscular Hemoglobin 30.4 pg (28.0-32.0); Mean Corpuscular Hgb Conc. 31.4 g/dL (32.0-36.0); Mean Corpuscular Volume 96.6 fL (80.0-100.0); Monocytes # (auto) 0.2 10 ^3/uL (0-1.3); Monocytes % (auto) 1.1 % (0.0-12.0); Neutrophils # (auto) 20.7 10 ^3/uL (1.6-8.6); Neutrophils % (auto) 92.4 % (37.0-80.0); Nucleated Red Blood Cells % 0.5 %; Platelet Count (auto) 120 10^3/uL (140-450); Red Blood Cells 2.97 10^6/uL (4.0-5.20); Red Cell Distribution Width 16.3 % (11.8-14.3); White Blood Cell 22.4 10^3/uL (4.4-10.8)
[2023-11-24 08:47] LABS: Alanine Aminotransferase 81 U/L (7-40); Albumin 3.4 g/dL (3.2-4.8); Alkaline Phosphatase 145 U/L (46-116); Anion Gap 16 (5-15); Aspartate Aminotransferase 68 U/L (13-40); BUN/Creatinine Ratio 17.2 (10.0-20.0); Blood Urea Nitrogen 70 mg/dL (9-23); Calcium 8.3 mg/dL (8.7-10.4); Carbon Dioxide 17 mmol/L (20-30); Chloride 113 mmol/L (98-107); Glucose 214 mg/dL (74-106); Potassium 2.6 mmol/L (3.5-5.1); Sodium 146 mmol/L (136-145)
[2023-11-24 08:48] LABS: Bilirubin, Total 0.4 mg/dL (0.2-1.0); Total Protein 5.1 g/dL (5.7-8.2)
[2023-11-24 12:29] LABS: Protein, Urine 26.1 mg/dL (0.0-11.9)
[2023-11-24 12:31] LABS: Creatinine, Urine 21.67 mg/dL (30.0-125.0)
[2023-11-24 12:48] LABS: Chloride 113 mmol/L (98-107); Sodium 149 mmol/L (136-145)
[2023-11-24 12:49] LABS: Anion Gap 15 (5-15); Calcium 8.6 mg/dL (8.7-10.4); Carbon Dioxide 21 mmol/L (20-30)
[2023-11-24 12:54] LABS: BUN/Creatinine Ratio 19.9 (10.0-20.0); Blood Urea Nitrogen 73 mg/dL (9-23); Glucose 86 mg/dL (74-106)
[2023-11-24] MEDS: DEXTROSE (50%) 50ML SYRG IV ONE (13:36)
[2023-11-24] MEDS: ACCU-CHEK COMFORT CURVE STRIP VI SCH (17:58)
[2023-11-24] MEDS: InsuLIN REG 1unit/0.01ml Soln (100units/ml) SC SCH ×2 (17:59→22:14)
[2023-11-24 20:00] VITALS: PULSE 118; RESP 21; O2SAT 97
[2023-11-24 21:48] VITALS: BP 114/71; PULSE 100; RESP 18; TEMP 98.9; O2SAT 97; O2SAT 98
[2023-11-24 21:50] VITALS: BP 114/71; PULSE 100; RESP 18; TEMP 98.9; O2SAT 97
[2023-11-25] VITALS (9 sets, daily range): BP systolic 98–133; BP diastolic 61–92; PULSE 57–127; RESP 18–20; TEMP 97.4–98.4; O2SAT 87–98
[2023-11-25 06:47] LABS: Alanine Aminotransferase 78 U/L (7-40); Albumin 3.6 g/dL (3.2-4.8); Alkaline Phosphatase 174 U/L (46-116); Anion Gap 13 (5-15); BUN/Creatinine Ratio 23.5 (10.0-20.0); Calcium 8.6 mg/dL (8.7-10.4); Carbon Dioxide 19 mmol/L (20-30); Chloride 117 mmol/L (98-107); Glucose 258 mg/dL (74-106); Potassium 3.4 mmol/L (3.5-5.1); Sodium 149 mmol/L (136-145)
[2023-11-25 06:48] LABS: Aspartate Aminotransferase 47 U/L (13-40); Bilirubin, Total 0.6 mg/dL (0.2-1.0); Total Protein 5.6 g/dL (5.7-8.2)
[2023-11-25 06:49] LABS: Blood Urea Nitrogen 58 mg/dL (9-23)
[2023-11-25 06:58] LABS: Basophils # (auto) 0 10 ^3/uL (0-0.2); Basophils % (auto) 0.2 % (0.0-2.0); Eosinophils # (auto) 0.1 10 ^3/uL (0-0.8); Eosinophils % (auto) 0.7 % (0.0-7.0); Hematocrit 31.7 % (36.0-46.0); Hemoglobin 10.2 g/dL (12.2-16.2); Lymphocytes # (auto) 1.3 10 ^3/uL (0.4-5.4); Lymphocytes % (auto) 7.3 % (10.0-50.0); Mean Corpuscular Hemoglobin 30.7 pg (28.0-32.0); Mean Corpuscular Hgb Conc. 32.3 g/dL (32.0-36.0); Mean Corpuscular Volume 94.9 fL (80.0-100.0); Monocytes # (auto) 0.3 10 ^3/uL (0-1.3); Monocytes % (auto) 1.6 % (0.0-12.0); Neutrophils # (auto) 16.1 10 ^3/uL (1.6-8.6); Neutrophils % (auto) 90.2 % (37.0-80.0); Nucleated Red Blood Cells % 0.1 %; Platelet Count (auto) 111 10^3/uL (140-450); Red Blood Cells 3.34 10^6/uL (4.0-5.20); Red Cell Distribution Width 16.4 % (11.8-14.3); White Blood Cell 17.8 10^3/uL (4.4-10.8)
[2023-11-25] MEDS: POTASSIUM CHL 20MEQ/100ML 100 ML IV ONE (10:35)
[2023-11-25] MEDS: MEROPENEM 500MG IVPB 50 ML IV SCH (12:00)
[2023-11-25] MEDS ORDERED: MEROPENEM 1GM IVPB 50 ML IV SCH (14:00)
[2023-11-25] MEDS: VANCOMYCIN 1GM/200ML 200 ML IV ONE (18:00)
[2023-11-26] VITALS (8 sets, daily range): BP systolic 116–128; BP diastolic 60–82; PULSE 69–119; RESP 18–20; TEMP 97.6–98.5; O2SAT 95–99
[2023-11-26] MEDS: POTASSIUM CHL 20MEQ/100ML 100 ML IV SCH (12:34)
[2023-11-26 12:39] LABS: Hematocrit 33.6 % (36.0-46.0); Hemoglobin 9.4 g/dL (12.2-16.2); Mean Corpuscular Hemoglobin 30.3 pg (28.0-32.0); Mean Corpuscular Hgb Conc. 28.1 g/dL (32.0-36.0); Mean Corpuscular Volume 107.7 fL (80.0-100.0); Platelet Count (auto) 76 10^3/uL (140-450); Red Blood Cells 3.12 10^6/uL (4.0-5.20); Red Cell Distribution Width 18.1 % (11.8-14.3); White Blood Cell 17.1 10^3/uL (4.4-10.8)
[2023-11-26 12:42] LABS: Basophils % (manual) 0 (0.0-2.0); Blast Cells 0; Metamyelocytes % 0; Myelocytes % 0; Promyelocytes % 0; Reactive Lymphocytes 0
[2023-11-26 12:51] LABS: Band Neutrophils % (manual) 3; Eosinophils % (manual) 1 (0-7); Lymphocytes % (manual) 6 (10.0-50.0); Monocytes % (manual) 2 (0-12)
[2023-11-26 12:53] LABS: Anisocytosis Slight; Hypochromia Marked; Macrocytosis Moderate; Platelet Estimate Decreased
[2023-11-26 13:42] LABS: Alanine Aminotransferase 59 U/L (7-40); Albumin 3.4 g/dL (3.2-4.8); Alkaline Phosphatase 166 U/L (46-116); Anion Gap 13 (5-15); Aspartate Aminotransferase 32 U/L (13-40); BUN/Creatinine Ratio 29.4 (10.0-20.0); Calcium 8.4 mg/dL (8.7-10.4); Carbon Dioxide 20 mmol/L (20-30); Chloride 116 mmol/L (98-107); Glucose 151 mg/dL (74-106); Magnesium 1.4 mg/dL (1.6-2.6); Sodium 149 mmol/L (136-145)
[2023-11-26 13:43] LABS: Bilirubin, Total 0.6 mg/dL (0.2-1.0); Phosphorus 2.6 mg/dL (2.4-5.1); Total Protein 5.3 g/dL (5.7-8.2)
[2023-11-26 14:00] LABS: Blood Urea Nitrogen 37 mg/dL (9-23)
[2023-11-26] MEDS: HYDROcodone-ACET 5/325MG TAB PO PRN (16:23)
[2023-11-26] MEDS: POTASSIUM EFFERVESENT TAB 25 MEQ PO ONE (17:25)
[2023-11-26] MEDS: FREE WATER PO SCH (17:27)
[2023-11-27] VITALS (7 sets, daily range): BP systolic 114–130; BP diastolic 69–84; PULSE 54–120; RESP 16–20; TEMP 97–98.7; O2SAT 89–100
[2023-11-27 07:19] LABS: Lymphocytes # (auto) 1.3 10 ^3/uL (0.4-5.4); Monocytes # (auto) 0.3 10 ^3/uL (0-1.3); Platelet Count (auto) 87 10^3/uL (140-450)
[2023-11-27 07:22] LABS: Basophils # (auto) 0.1 10 ^3/uL (0-0.2); Basophils % (auto) 0.4 % (0.0-2.0); Eosinophils # (auto) 0.3 10 ^3/uL (0-0.8); Eosinophils % (auto) 1.7 % (0.0-7.0); Hematocrit 25.4 % (36.0-46.0); Hemoglobin 8.2 g/dL (12.2-16.2); Lymphocytes % (auto) 8.6 % (10.0-50.0); Mean Corpuscular Hemoglobin 30.5 pg (28.0-32.0); Mean Corpuscular Hgb Conc. 32.4 g/dL (32.0-36.0); Mean Corpuscular Volume 94.2 fL (80.0-100.0); Monocytes % (auto) 2.1 % (0.0-12.0); Neutrophils # (auto) 13.3 10 ^3/uL (1.6-8.6); Neutrophils % (auto) 87.2 % (37.0-80.0); Red Cell Distribution Width 16.1 % (11.8-14.3); White Blood Cell 15.2 10^3/uL (4.4-10.8)
[2023-11-27 07:36] LABS: Alanine Aminotransferase 48 U/L (7-40); Alkaline Phosphatase 142 U/L (46-116); Anion Gap 9 (5-15); Aspartate Aminotransferase 26 U/L (13-40); BUN/Creatinine Ratio 28.7 (10.0-20.0); Calcium 8.3 mg/dL (8.7-10.4); Carbon Dioxide 19 mmol/L (20-30); Chloride 118 mmol/L (98-107); Creatine Kinase IFCC 75 U/L (34-145); Glucose 131 mg/dL (74-106); Potassium 4.1 mmol/L (3.5-5.1); Sodium 146 mmol/L (136-145)
[2023-11-27 07:37] LABS: Bilirubin, Total 0.4 mg/dL (0.2-1.0); Blood Urea Nitrogen 25 mg/dL (9-23); Total Protein 4.8 g/dL (5.7-8.2)
[2023-11-27] MEDS: MAGNESIUM SULFATE 1GM/100ML 100 ML IV ONE (10:05)
[2023-11-27] MEDS: MEROPENEM 1GM IVPB 50 ML IV SCH (23:33)
[2023-11-28] VITALS (7 sets, daily range): BP systolic 117–131; BP diastolic 71–80; PULSE 81–111; RESP 16–20; TEMP 97.8–98.7; O2SAT 93–100
[2023-11-28 06:39] LABS: Basophils # (auto) 0 10 ^3/uL (0-0.2); Eosinophils # (auto) 0.1 10 ^3/uL (0-0.8); Hemoglobin 7.9 g/dL (12.2-16.2); Monocytes # (auto) 0.6 10 ^3/uL (0-1.3); Monocytes % (auto) 3.6 % (0.0-12.0); Red Blood Cells 2.63 10^6/uL (4.0-5.20)
[2023-11-28 06:40] LABS: Alanine Aminotransferase 44 U/L (7-40); Albumin 2.9 g/dL (3.2-4.8); Alkaline Phosphatase 159 U/L (46-116); Aspartate Aminotransferase 29 U/L (13-40); BUN/Creatinine Ratio 20.5 (10.0-20.0); Blood Urea Nitrogen 15 mg/dL (9-23); Calcium 8.5 mg/dL (8.7-10.4); Chloride 117 mmol/L (98-107); Magnesium 1.5 mg/dL (1.6-2.6); Potassium 3.8 mmol/L (3.5-5.1); Sodium 148 mmol/L (136-145)
[2023-11-28 06:41] LABS: Bilirubin, Total 0.4 mg/dL (0.2-1.0); Total Protein 4.9 g/dL (5.7-8.2)
[2023-11-28 06:42] LABS: Basophils % (auto) 0.3 % (0.0-2.0); Eosinophils % (auto) 0.7 % (0.0-7.0); Lymphocytes # (auto) 1.1 10 ^3/uL (0.4-5.4); Mean Corpuscular Hemoglobin 30.2 pg (28.0-32.0); Mean Corpuscular Hgb Conc. 31.7 g/dL (32.0-36.0); Mean Corpuscular Volume 95.2 fL (80.0-100.0); Neutrophils # (auto) 14.4 10 ^3/uL (1.6-8.6); Neutrophils % (auto) 88.4 % (37.0-80.0); Platelet Count (auto) 94 10^3/uL (140-450); White Blood Cell 16.3 10^3/uL (4.4-10.8)
[2023-11-28 07:41] LABS: Anion Gap 12 (5-15); Carbon Dioxide 19 mmol/L (20-30); Glucose 115 mg/dL (74-106)
[2023-11-28] MEDS: MAGNESIUM SULFATE 1GM/100ML 100 ML IV SCH (08:54)
[2023-11-28] MEDS: SOD CHL 0.45% 1,000 ML IV ONE (13:07)
[2023-11-28] MEDS: ERTAPENEM SOD INJ 1 GM in SODIUM CHL 0.9% 50 ML IV SCH (13:07)
[2023-11-29] VITALS (8 sets, daily range): BP systolic 116–151; BP diastolic 61–88; PULSE 98–113; RESP 14–19; TEMP 98–98.6; O2SAT 94–100
[2023-11-29 08:26] LABS: Chloride 114 mmol/L (98-107); Potassium 3.3 mmol/L (3.5-5.1); Sodium 142 mmol/L (136-145)
[2023-11-29 08:27] LABS: Anion Gap 7 (5-15); Calcium 8.3 mg/dL (8.7-10.4); Carbon Dioxide 21 mmol/L (20-30)
[2023-11-29 08:32] LABS: Blood Urea Nitrogen 8 mg/dL (9-23); Glucose 87 mg/dL (74-106)
[2023-11-29 08:33] LABS: Magnesium 1.7 mg/dL (1.6-2.6)
[2023-11-29 08:34] LABS: Phosphorus 2.3 mg/dL (2.4-5.1)
[2023-11-29] MEDS: POTASSIUM EFFERVESENT TAB 25 MEQ PO ONE ×2 (10:36→18:59)
[2023-11-29] MEDS ORDERED: VANCOMYCIN PER PHARMACY 0 MG IV SCH (12:30)
[2023-11-29 12:39] LABS: Basophils # (auto) 0 10 ^3/uL (0-0.2); Basophils % (auto) 0.1 % (0.0-2.0); Eosinophils # (auto) 0.1 10 ^3/uL (0-0.8); Hemoglobin 7.5 g/dL (12.2-16.2)
[2023-11-29 12:44] LABS: Eosinophils % (auto) 0.9 % (0.0-7.0); Hematocrit 23.2 % (36.0-46.0); Lymphocytes # (auto) 1.2 10 ^3/uL (0.4-5.4); Lymphocytes % (auto) 7.3 % (10.0-50.0); Mean Corpuscular Hemoglobin 30.4 pg (28.0-32.0); Mean Corpuscular Hgb Conc. 32.4 g/dL (32.0-36.0); Mean Corpuscular Volume 93.9 fL (80.0-100.0); Monocytes # (auto) 0.8 10 ^3/uL (0-1.3); Monocytes % (auto) 4.8 % (0.0-12.0); Neutrophils % (auto) 86.9 % (37.0-80.0); Nucleated Red Blood Cells % 0.1 %; Platelet Count (auto) 106 10^3/uL (140-450); Red Blood Cells 2.47 10^6/uL (4.0-5.20); Red Cell Distribution Width 15.4 % (11.8-14.3); White Blood Cell 16.1 10^3/uL (4.4-10.8)
[2023-11-29 12:59] LABS: Alanine Aminotransferase 38 U/L (7-40); Albumin 2.7 g/dL (3.2-4.8); Alkaline Phosphatase 166 U/L (46-116); Anion Gap 10 (5-15); Aspartate Aminotransferase 30 U/L (13-40); BUN/Creatinine Ratio 12.7 (10.0-20.0); Blood Urea Nitrogen 7 mg/dL (9-23); Calcium 8.1 mg/dL (8.7-10.4); Carbon Dioxide 21 mmol/L (20-30); Chloride 112 mmol/L (98-107); Glucose 84 mg/dL (74-106); Potassium 3.4 mmol/L (3.5-5.1); Sodium 143 mmol/L (136-145)
[2023-11-29 13:00] LABS: Bilirubin, Total 0.2 mg/dL (0.2-1.0); Total Protein 4.7 g/dL (5.7-8.2)
[2023-11-29] MEDS: VANCOMYCIN 1GM/200ML 200 ML IV ONE (18:59)
[2023-11-30 06:00] VITALS: BP 132/77; PULSE 105; RESP 18; TEMP 98.1; O2SAT 96
[2023-11-30 07:14] LABS: Hemoglobin 7.8 g/dL (12.2-16.2); Lymphocytes # (auto) 1.2 10 ^3/uL (0.4-5.4); Lymphocytes % (auto) 8.6 % (10.0-50.0); Mean Corpuscular Hemoglobin 30.2 pg (28.0-32.0); Mean Corpuscular Volume 94.2 fL (80.0-100.0); Monocytes # (auto) 0.2 10 ^3/uL (0-1.3)
[2023-11-30 07:17] LABS: Basophils # (auto) 0.1 10 ^3/uL (0-0.2); Basophils % (auto) 0.5 % (0.0-2.0); Eosinophils # (auto) 0.2 10 ^3/uL (0-0.8); Eosinophils % (auto) 1.3 % (0.0-7.0); Hematocrit 24.3 % (36.0-46.0); Monocytes % (auto) 1.7 % (0.0-12.0); Neutrophils # (auto) 12.2 10 ^3/uL (1.6-8.6); Neutrophils % (auto) 87.9 % (37.0-80.0); Platelet Count (auto) 121 10^3/uL (140-450); Red Blood Cells 2.58 10^6/uL (4.0-5.20); Red Cell Distribution Width 15.8 % (11.8-14.3); White Blood Cell 13.8 10^3/uL (4.4-10.8)
[2023-11-30 07:34] LABS: Calcium 8.4 mg/dL (8.7-10.4); Chloride 112 mmol/L (98-107); Potassium 3.7 mmol/L (3.5-5.1); Sodium 141 mmol/L (136-145)
[2023-11-30 07:35] LABS: Anion Gap 7 (5-15); Carbon Dioxide 22 mmol/L (20-30)
[2023-11-30 07:40] LABS: BUN/Creatinine Ratio 9.1 (10.0-20.0); Blood Urea Nitrogen < 5 mg/dL (9-23); Glucose 91 mg/dL (74-106)
[2023-11-30 08:00] VITALS: PULSE 80; RESP 16; O2SAT 97
[2023-11-30 09:00] VITALS: BP 136/88; PULSE 103; RESP 17; TEMP 99.1; O2SAT 91
[2023-11-30] MEDS: VANCOMYCIN 1GM/200ML 200 ML IV SCH (10:29)
[2023-11-30 12:30] VITALS: BP 136/88; PULSE 103; RESP 17; TEMP 98.1; O2SAT 91
[2023-11-30 12:47] LABS: Complement C3 115 mg/dL (82-167)
[2023-11-30 16:37] VITALS: BP 142/90; PULSE 149; RESP 19; TEMP 98.8; O2SAT 99
[2023-11-30] MEDS: METOPROLOL TARTRATE 1MG/1ML-5ML VIAL IV ONE ×2 (17:00)
[2023-11-30] MEDS ORDERED: METO25TA5 PO (17:09)
[2023-11-30 21:03] VITALS: BP 128/78; PULSE 106; RESP 16; TEMP 98.6; O2SAT 99
[2023-12-01] VITALS (7 sets, daily range): BP systolic 99–140; BP diastolic 61–99; PULSE 92–143; RESP 17–18; TEMP 98–98.7; O2SAT 92–98
[2023-12-01] MEDS ORDERED: DEXTROSE (50%) 50ML SYRG IV PRN (09:00)
[2023-12-01] MEDS: D5W/SOD CHLO 0.9% 1,000 ML IV SCH (09:00)
[2023-12-01 09:31] LABS: Basophils # (auto) 0 10 ^3/uL (0-0.2); Basophils % (auto) 0.2 % (0.0-2.0); Eosinophils # (auto) 0.1 10 ^3/uL (0-0.8); Eosinophils % (auto) 1.2 % (0.0-7.0); Hematocrit 26.6 % (36.0-46.0); Hemoglobin 8.4 g/dL (12.2-16.2); Lymphocytes # (auto) 1.1 10 ^3/uL (0.4-5.4); Mean Corpuscular Hemoglobin 29.6 pg (28.0-32.0); Mean Corpuscular Hgb Conc. 31.7 g/dL (32.0-36.0); Mean Corpuscular Volume 93.4 fL (80.0-100.0); Monocytes # (auto) 0.2 10 ^3/uL (0-1.3); Monocytes % (auto) 1.6 % (0.0-12.0); Neutrophils # (auto) 10.6 10 ^3/uL (1.6-8.6); Nucleated Red Blood Cells % 0.1 %; Platelet Count (auto) 180 10^3/uL (140-450); Red Blood Cells 2.85 10^6/uL (4.0-5.20); Red Cell Distribution Width 16.3 % (11.8-14.3)
[2023-12-01] MEDS: METOPROLOL TARTRATE 25 MG TAB PO SCH (10:51)
[2023-12-01] MEDS: ERTAPENEM SOD INJ 1 GM in SODIUM CHL 0.9% 50 ML IV SCH (10:51)
[2023-12-01] MEDS: InsuLIN REG 1unit/0.01ml Soln (100units/ml) SC SCH (11:30)
[2023-12-01] MEDS: ACCU-CHEK COMFORT CURVE STRIP VI SCH (11:30)
[2023-12-01] MEDS: METOPROLOL TARTRATE 1MG/1ML-5ML VIAL IV ONE (13:13)
[2023-12-01 15:36] LABS: Chloride 112 mmol/L (98-107); Potassium 3.3 mmol/L (3.5-5.1); Sodium 142 mmol/L (136-145)
[2023-12-01 15:37] LABS: Anion Gap 7 (5-15); Carbon Dioxide 23 mmol/L (20-30)
[2023-12-01 15:38] LABS: Calcium 8.7 mg/dL (8.7-10.4)
[2023-12-01 15:42] LABS: Glucose 135 mg/dL (74-106)
[2023-12-01 15:43] LABS: BUN/Creatinine Ratio 9.1 (10.0-20.0); Blood Urea Nitrogen 5 mg/dL (9-23); Magnesium 1.5 mg/dL (1.6-2.6)
[2023-12-01] MEDS: VANCOMYCIN 1GM/200ML 200 ML IV SCH (16:00)
[2023-12-02] VITALS (8 sets, daily range): BP systolic 98–147; BP diastolic 54–82; PULSE 78–119; RESP 16–18; TEMP 97.9–98.7; O2SAT 94–100
[2023-12-02] MEDS: ONDANSETRON HCL 4 MG/2 ML VIAL IV PRN (06:17)
[2023-12-02] MEDS: METOPROLOL TARTRATE 25 MG TAB PO ONE (06:18)
[2023-12-02 08:05] LABS: Chloride 114 mmol/L (98-107); Potassium 3.4 mmol/L (3.5-5.1); Sodium 139 mmol/L (136-145)
[2023-12-02 08:06] LABS: Anion Gap 5 (5-15); Calcium 8.1 mg/dL (8.7-10.4); Carbon Dioxide 20 mmol/L (20-30)
[2023-12-02 08:11] LABS: Glucose 128 mg/dL (74-106)
[2023-12-02 08:13] LABS: BUN/Creatinine Ratio 10.9 (10.0-20.0); Blood Urea Nitrogen < 5 mg/dL (9-23)
[2023-12-02 10:43] LABS: Basophils # (auto) 0 10 ^3/uL (0-0.2); Basophils % (auto) 0.2 % (0.0-2.0); Lymphocytes # (auto) 1.5 10 ^3/uL (0.4-5.4); Mean Corpuscular Volume 93.5 fL (80.0-100.0); Monocytes # (auto) 0.2 10 ^3/uL (0-1.3); Neutrophils # (auto) 8.5 10 ^3/uL (1.6-8.6); White Blood Cell 10.3 10^3/uL (4.4-10.8)
[2023-12-02 10:44] LABS: Eosinophils # (auto) 0.1 10 ^3/uL (0-0.8); Eosinophils % (auto) 1.2 % (0.0-7.0); Hematocrit 24.7 % (36.0-46.0); Lymphocytes % (auto) 14.6 % (10.0-50.0); Mean Corpuscular Hemoglobin 30.3 pg (28.0-32.0); Mean Corpuscular Hgb Conc. 32.4 g/dL (32.0-36.0); Monocytes % (auto) 1.6 % (0.0-12.0); Neutrophils % (auto) 82.4 % (37.0-80.0); Platelet Count (auto) 215 10^3/uL (140-450); Red Blood Cells 2.64 10^6/uL (4.0-5.20); Red Cell Distribution Width 16.2 % (11.8-14.3)
[2023-12-02] MEDS: POTASSIUM EFFERVESENT TAB 25 MEQ PO ONE (10:48)
[2023-12-02] MEDS: METOPROLOL TARTRATE 25 MG TAB PO SCH (10:49)
[2023-12-02] MEDS: DOXYCYCLINE 100 MG TAB/CAP PO SCH (21:25)
[2023-12-03] VITALS (12 sets, daily range): BP systolic 116–144; BP diastolic 64–98; PULSE 64–90; RESP 16–20; TEMP 97.5–98.4; O2SAT 62–99
[2023-12-03 06:52] LABS: Anion Gap 4 (5-15); Carbon Dioxide 22 mmol/L (20-30); Chloride 114 mmol/L (98-107); Potassium 3.4 mmol/L (3.5-5.1); Sodium 140 mmol/L (136-145)
[2023-12-03 06:53] LABS: Calcium 7.9 mg/dL (8.7-10.4)
[2023-12-03 06:58] LABS: Glucose 134 mg/dL (74-106)
[2023-12-03 07:03] LABS: BUN/Creatinine Ratio 10.9 (10.0-20.0); Blood Urea Nitrogen < 5 mg/dL (9-23)
[2023-12-03 09:51] LABS: Basophils # (auto) 0 10 ^3/uL (0-0.2); Basophils % (auto) 0.3 % (0.0-2.0); Eosinophils # (auto) 0.1 10 ^3/uL (0-0.8); Nucleated Red Blood Cells % 0.1 %; Red Cell Distribution Width 16.1 % (11.8-14.3)
[2023-12-03 09:55] LABS: Eosinophils % (auto) 1.7 % (0.0-7.0); Hematocrit 20.5 % (36.0-46.0); Lymphocytes # (auto) 1.9 10 ^3/uL (0.4-5.4); Lymphocytes % (auto) 23.4 % (10.0-50.0); Mean Corpuscular Hemoglobin 29.9 pg (28.0-32.0); Mean Corpuscular Hgb Conc. 32.6 g/dL (32.0-36.0); Mean Corpuscular Volume 91.8 fL (80.0-100.0); Monocytes # (auto) 0.4 10 ^3/uL (0-1.3); Monocytes % (auto) 4.7 % (0.0-12.0); Neutrophils # (auto) 5.7 10 ^3/uL (1.6-8.6); Neutrophils % (auto) 69.9 % (37.0-80.0); Platelet Count (auto) 211 10^3/uL (140-450); Red Blood Cells 2.23 10^6/uL (4.0-5.20); White Blood Cell 8.2 10^3/uL (4.4-10.8)
[2023-12-03 10:02] LABS: Hemoglobin 6.7 g/dL (12.2-16.2)
[2023-12-03 17:10] LABS: Basophils # (auto) 0 10 ^3/uL (0-0.2); Basophils % (auto) 0.3 % (0.0-2.0); Eosinophils # (auto) 0.1 10 ^3/uL (0-0.8); Lymphocytes # (auto) 1.9 10 ^3/uL (0.4-5.4); Monocytes # (auto) 0.5 10 ^3/uL (0-1.3); Neutrophils % (auto) 67.8 % (37.0-80.0); Nucleated Red Blood Cells % 0.1 %
[2023-12-03 17:12] LABS: Eosinophils % (auto) 1.5 % (0.0-7.0); Hematocrit 22.3 % (36.0-46.0); Mean Corpuscular Hemoglobin 29.6 pg (28.0-32.0); Mean Corpuscular Volume 95.3 fL (80.0-100.0); Monocytes % (auto) 6.4 % (0.0-12.0); Neutrophils # (auto) 5.5 10 ^3/uL (1.6-8.6); Platelet Count (auto) 216 10^3/uL (140-450); Red Blood Cells 2.34 10^6/uL (4.0-5.20); Red Cell Distribution Width 16.3 % (11.8-14.3); White Blood Cell 8.1 10^3/uL (4.4-10.8)
[2023-12-03 17:31] LABS: Hemoglobin 6.9 g/dL (12.2-16.2)
[2023-12-03] MEDS: POTASSIUM CHLORIDE 8 MEQ TAB PO ONE (18:25)
[2023-12-03] MEDS: FUROSEMIDE 20 MG/2 ML VIAL IV ONE (21:46)
[2023-12-04] VITALS (9 sets, daily range): BP systolic 118–147; BP diastolic 55–87; PULSE 67–87; RESP 16–18; TEMP 97.5–98.1; O2SAT 90–100
[2023-12-04 06:16] LABS: Basophils # (auto) 0 10 ^3/uL (0-0.2); Basophils % (auto) 0.5 % (0.0-2.0); Eosinophils # (auto) 0.2 10 ^3/uL (0-0.8); Hematocrit 39.6 % (36.0-46.0); Hemoglobin 12.9 g/dL (12.2-16.2); Lymphocytes # (auto) 2.3 10 ^3/uL (0.4-5.4); Lymphocytes % (auto) 26.3 % (10.0-50.0); Mean Corpuscular Hemoglobin 29.1 pg (28.0-32.0); Mean Corpuscular Hgb Conc. 32.5 g/dL (32.0-36.0); Mean Corpuscular Volume 89.3 fL (80.0-100.0); Monocytes # (auto) 0.6 10 ^3/uL (0-1.3); Monocytes % (auto) 6.7 % (0.0-12.0); Neutrophils # (auto) 5.7 10 ^3/uL (1.6-8.6); Neutrophils % (auto) 64.5 % (37.0-80.0); Nucleated Red Blood Cells % 0.2 %; Platelet Count (auto) 201 10^3/uL (140-450); Red Blood Cells 4.44 10^6/uL (4.0-5.20); Red Cell Distribution Width 16.1 % (11.8-14.3); White Blood Cell 8.8 10^3/uL (4.4-10.8)
[2023-12-04] MEDS: POTASSIUM CHL 20 Meq TABLET PO STA (10:25)
[2023-12-04] MEDS: MAGNESIUM SULFATE 1GM/100ML 100 ML IV STA (17:29)
[2023-12-04] MEDS ORDERED: DEXTROSE 10% 1,000 ML IV ONE (22:00)
[2023-12-04] MEDS: DEXTROSE 10% 1,000 ML IV SCH (22:31)
[2023-12-05] VITALS (9 sets, daily range): BP systolic 117–159; BP diastolic 76–85; PULSE 70–83; RESP 16–20; TEMP 97.6–98.6; O2SAT 92–100
[2023-12-05 07:35] LABS: Chloride 114 mmol/L (98-107); Hematocrit 43.4 % (36.0-46.0); Hemoglobin 13.3 g/dL (12.2-16.2); Mean Corpuscular Hgb Conc. 30.8 g/dL (32.0-36.0); Mean Corpuscular Volume 94.3 fL (80.0-100.0); Platelet Count (auto) 207 10^3/uL (140-450); Sodium 138 mmol/L (136-145)
[2023-12-05 07:36] LABS: Anion Gap 5 (5-15); Calcium 8.4 mg/dL (8.7-10.4); Carbon Dioxide 19 mmol/L (20-30)
[2023-12-05 07:37] LABS: Band Neutrophils % (manual) 0; Basophils % (manual) 0 (0.0-2.0); Blast Cells 0; Eosinophils % (manual) 0 (0-7); Metamyelocytes % 0; Myelocytes % 0; Promyelocytes % 0; Reactive Lymphocytes 0
[2023-12-05 07:41] LABS: Blood Urea Nitrogen < 5 mg/dL (9-23); Glucose 104 mg/dL (74-106); Magnesium 1.6 mg/dL (1.6-2.6)
[2023-12-05 08:42] LABS: Lymphocytes % (manual) 24 (10.0-50.0); Monocytes % (manual) 4 (0-12)
[2023-12-05 08:43] LABS: Platelet Estimate Adequate
[2023-12-05] MEDS: IOHEXOL 300 MG/ML 100ML BOTTLE IJ ONE (14:30)
[2023-12-06] VITALS (10 sets, daily range): BP systolic 134–158; BP diastolic 67–96; PULSE 60–100; RESP 16–19; TEMP 97.6–98.4; O2SAT 94–99
[2023-12-06] MEDS: LACTULOSE 20Gm/30ML SOLN PO ONE (11:48)
[2023-12-06 12:49] LABS: Lipase 32 U/L (12-53)
[2023-12-06 12:51] LABS: Amylase 41 U/L (30-118)
[2023-12-07 01:00] VITALS: BP 154/96; PULSE 86; RESP 17; TEMP 98.1; O2SAT 98
[2023-12-07 05:00] VITALS: BP 159/98; PULSE 91; RESP 17; TEMP 97.4; O2SAT 98
[2023-12-07 06:04] LABS: Hematocrit 39.2 % (36.0-46.0); Hemoglobin 12.7 g/dL (12.2-16.2); Mean Corpuscular Hemoglobin 29.6 pg (28.0-32.0); Mean Corpuscular Hgb Conc. 32.5 g/dL (32.0-36.0); Mean Corpuscular Volume 91.1 fL (80.0-100.0); Platelet Count (auto) 251 10^3/uL (140-450); Red Cell Distribution Width 16.6 % (11.8-14.3); White Blood Cell 8.8 10^3/uL (4.4-10.8)
[2023-12-07 06:28] LABS: Anion Gap 10 (5-15); Band Neutrophils % (manual) 0; Basophils % (manual) 0 (0.0-2.0); Blast Cells 0; Calcium 8.2 mg/dL (8.7-10.4); Carbon Dioxide 18 mmol/L (20-30); Chloride 113 mmol/L (98-107); Myelocytes % 0; Potassium 3.4 mmol/L (3.5-5.1); Promyelocytes % 0; Reactive Lymphocytes 0; Sodium 141 mmol/L (136-145)
[2023-12-07 06:31] VITALS: BP 149/98; PULSE 91; RESP 17; TEMP 97.4; O2SAT 98
[2023-12-07 06:34] LABS: Glucose 87 mg/dL (74-106); Magnesium 1.4 mg/dL (1.6-2.6)
[2023-12-07 06:35] LABS: BUN/Creatinine Ratio 8.3 (10.0-20.0); Blood Urea Nitrogen < 5 mg/dL (9-23)
[2023-12-07 08:00] VITALS: PULSE 78; RESP 17; O2SAT 98
[2023-12-07 08:39] LABS: Eosinophils % (manual) 1 (0-7); Lymphocytes % (manual) 33 (10.0-50.0); Metamyelocytes % 1; Monocytes % (manual) 4 (0-12); Platelet Estimate Adequate
[2023-12-07 09:00] VITALS: BP 145/87; PULSE 78; RESP 17; TEMP 97.9; O2SAT 98
[2023-12-07] MEDS ORDERED: NITR-79 PO (09:22)
[2023-12-07] MEDS: MAGNESIUM OXIDE 400 MG TAB PO ONE (09:35)
[2023-12-07] MEDS: POTASSIUM CHL 20 Meq TABLET PO ONE (09:35)
[2023-12-07 11:01] VITALS: BP 145/87; PULSE 78; RESP 17; TEMP 97.9; O2SAT 98
== END 2023-12-07 12:45 | disposition home health service (06) | DRG 871 ==
LOC: EDBD 21:54 → ER 21:54 → TELE 23:57 → TELE-WESTW 11-24 21:36 → TELE-CENTR 11-25 15:04 → CENTRAL 11-30 13:56 → TELE-CENTR 12-01 14:23 → CENTRAL 12-06 11:02
PROVIDERS: ADMIT Nurse Practitioner; ATTEND Internal Medicine
PROC: 06HY33Z Insertion of Infusion Device into Lower Vein, Percutaneous Approach (ICD-10-PCS; 2023-11-22)
PROC: 05HF33Z Insertion of Infusion Device into Left Cephalic Vein, Percutaneous Approach (ICD-10-PCS; 2023-11-29)
PROC: B54NZZA Ultrasonography of Left Upper Extremity Veins, Guidance (ICD-10-PCS; 2023-11-29)
PROC: 30233N1 Transfusion of Nonautologous Red Blood Cells into Peripheral Vein, Percutaneous Approach (ICD-10-PCS; principal; 2023-12-04)
DX: A41.9 Sepsis, unspecified organism (principal); E11.10 Type 2 diabetes mellitus with ketoacidosis without coma; G93.41 Metabolic encephalopathy; R57.1 Hypovolemic shock; N17.0 Acute kidney failure with tubular necrosis; R65.21 Severe sepsis with septic shock; M62.82 Rhabdomyolysis; E87.0 Hyperosmolality and hypernatremia; E87.1 Hypo-osmolality and hyponatremia; I47.10 Supraventricular tachycardia, unspecified; M48.54XA Collapsed vertebra, not elsewhere classified, thoracic region, initial encounter for fracture; E78.5 Hyperlipidemia, unspecified; E87.6 Hypokalemia; N30.90 Cystitis, unspecified without hematuria; F03.90 Unspecified dementia, unspecified severity, without behavioral disturbance, psychotic disturbance, mood disturbance, and anxiety; F12.10 Cannabis abuse, uncomplicated; J43.9 Emphysema, unspecified; F32.A Depression, unspecified; F41.9 Anxiety disorder, unspecified; E83.42 Hypomagnesemia; S21.001A Unspecified open wound of right breast, initial encounter; N61.1 Abscess of the breast and nipple; X58.XXXA Exposure to other specified factors, initial encounter; Z98.82 Breast implant status; Y93.89 Activity, other specified; Y92.89 Other specified places as the place of occurrence of the external cause; Y99.8 Other external cause status; Z87.440 Personal history of urinary (tract) infections; Z90.710 Acquired absence of both cervix and uterus
CPT/HCPCS: 36415; 36556; 36600; 70450; 71045; 73502; 74176; 74177; 76642; 80048; 80053; 80202; 81001; 82010; 82140; 82150; 82270; 82306; 82550; 82565; 82570; 82607; 82728; 82805; 82962; 83010; 83036; 83540; 83550; 83605; 83615; 83690; 83735; 83880; 84100; 84132; 84156; 84300; 84484; 85007; 85025; 85027; 85045; 86160; 86850; 86880; 86900; 86901; 86920; 87040; 87086; 87088; 87186; 87205; 93005; 93971; 97110; 97116; 97163; 97530; 99291; G0378; J0692; J1335; J1815; J2185; J2405; J2543; J3480